=== PATIENT | male | born 1945 | race Caucasian/White ===

== ENCOUNTER 2023-02-18 11:21 | Inpatient (IN) ==
--- NOTE | 2023-02-18 12:14 | Emergency Department Note ---
History of Present Illness General Chief complaint: Unable to Void Stated complaint: REF BY DOC; UNABLE TO VOID Time Seen by Provider: 02/18/23 11:43 Source: patient, family and old records reviewed Mode of arrival: ambulatory Limitations: no limitations History of Present Illness Maximum Pain Intensity: 10 This patient is a 77-year-old male has a history of metastatic lung cancer, comes in after having urinary retention. He was actually at the cancer center today to get evaluated for radiation on some hip lesions. They did a CT for preparation and noticed he had a very large bladder and sent him here. The patient says he has been dribbling and had a hard time urinating intermittently for at least a week and a half or so he has been wearing diapers as well. He does have some pain in his legs and some weakness which was thought to be attributed to some hip lesions although his daughters that he walked well today. He did have a recent MRI of his hips done on the he had a PET scan done on 04 January. He does receive Keytruda and received it last month ago or so Home Medications Medication Instructions Recorded Confirmed Type brimonidine 0.2 %-timolol 0.5 % 1 drp OPR BID 02/17/23 02/18/23 History eye drops dorzolamide (PF) 2 % (PF) eye drops 1 drp OPR TID 02/17/23 02/18/23 History gabapentin 100 mg capsule 100 mg PO HS 02/17/23 02/18/23 History latanoprost 0.005 % eye drops 1 drp OPR QPM 02/17/23 02/18/23 History (Xalatan) levothyroxine 75 mcg capsule 75 mcg PO DAILY 02/17/23 02/18/23 History sodium di- and 1 tab PO BID 02/17/23 02/18/23 History monophosphate-potassium phos monobasic 250 mg tablet (Phospho-Maxine Neutral) tamsulosin 0.4 mg capsule 0.4 mg PO DAILY 02/17/23 02/18/23 History Allergies Allergy/AdvReac Type Severity Reaction Status Date / Time No Known Allergies Allergy Unverified 02/18/23 13:23 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 Tobacco use disorder Surgical History H/O inguinal hernia repair History of bronchoscopy History of cataract surgery Social History Smoking Status: Current every day smoker Tobacco Type: Cigarettes Age Started Using Tobacco: 28; Cigarettes Per Day: 1/2-1 pack per day; Second Hand Exposure: Yes; Do You Dip or Chew Tobacco: No; Hx Alcohol Use: No Hx Substance Use: No Preferred Language: Maltese Communication Ability: Effective Visual Impairment: Partially Limited Hearing Ability: Normal Salesperson [employer] Required: No Beliefs That Will Affect Care: None marital status: / Current Living Situation: Alone current occupational status: 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, 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 Feels Safe at Home: Yes Diet: regular during the past year weight has: remained stable Assistive Devices: Cane and Glasses Review of Systems A total of 10 systems reviewed and were otherwise negative Physical Exam Vital Signs Vital Signs - 24 hr 02/18/23 11:26 02/18/23 13:41 Temperature 36.5 C Temperature Source Temporal Artery Scan Pulse Rate 62 59 L Respiratory Rate 16 Respiratory Effort / Characteristics Non-Labored Respiratory Depth Normal Blood Pressure 116/67 Blood Pressure Mean 83 Pulse Oximetry 95 Oxygen Delivery Method Room Air Sepsis Recent Fever Within 48 Hours No Sepsis New/Unexplained Change in Mental Status No Sepsis Action Taken by Nursing No Action Required General: Well developed well nourished older male who appears frail but in no acute distress, breathing comfortably on room air. Normal speech HEENT: Normal cephalic atraumatic. Pupils are equal round and reactive to light. Extraocular movements are intact. Oropharynx is pink with moist mucous membranes. No swelling of the mouth lips or tongue. Neck: Supple with a midline trachea. No meningeal signs or stiffness, no JVD or bruits. No Stridor. Chest: Clear to auscultation bilaterally. No wheezes or rhonchi. No increased work of breathing. Heart: Regular rate and rhythm without murmurs or gallops. Abdomen: Soft nontender.there is a distended bladder felt suprapubically without rebound guarding or rigidity. Extremities: No cyanosis clubbing or edema. No calf tenderness or assymetry Spine/Back. Non tender to palpation. No CVA tenderness Skin: Good turgor without rashes. Neurologic exam: Cranial nerves two through 12 are intact. Motor and sensation are intact and symmetrical throughout. Medical Decision Making Differential Diagnosis Urinary retention, cancer related complication, spinal process or spinal mets, prostate issues, kidney disease, electrolyte or metabolic abnormality Medical Records Attestation: I reviewed the patient's medical records. Home Medications Current Medication List: was personally reviewed by me Laboratory Data Attestation: I reviewed the patient's lab results. 02/18/23 12:13 02/18/23 12:13 Lab Results 02/18/23 02/18/23 02/18/23 Range/Units 12:02 12:13 12:13 WBC 10.46 (4.8-10.8) K/ul RBC 3.90 L (4.70-6.10) M/uL Hgb 11.8 L (14.0-18.0) g/dl Hct 34.1 L (42.0-52.0) % MCV 87.4 (80.0-100.0) fL MCH 30.3 (25.0-34.0) pg MCHC 34.6 (32.0-36.0) g/dL RDW Std Deviation 49.4 H (36.4-46.3) fL RDW Coeff of Madeleine 15.4 H (11.5-14.5) % Plt Count 221 (130-400) K/uL MPV 9.8 (9.4-12.4) fL Immature Gran % (Auto) 0.6 % Neut % (Auto) 60.9 % Lymph % (Auto) 28.2 % [place] % (Auto) 8.3 % Eos % (Auto) 1.6 % Baso % (Auto) 0.4 % Neut # (Auto) 6.37 (1.40-6.50) K/uL Lymph # (Auto) 2.95 (1.2-3.4) K/uL [place] # (Auto) 0.87 H (0.11-0.59) K/uL Eos # (Auto) 0.17 (0-0.50) K/uL Baso # (Auto) 0.04 (0-0.2) K/uL Immature Gran # (Auto) 0.06 (0.01-0.20) K/uL Sodium 124 L (136-145) mmol/L Potassium 4.6 (3.5-5.1) mmol/L Chloride 92 L (98-107) mmol/L Carbon Dioxide 22 (21-32) mmol/L Anion Gap 10 (3-11) BUN 50 H (6-23) mg/dl Creatinine 5.91 H* (0.6-1.4) mg/dl Est Cr Clr Drug Dosing Not Reportable Est GFR ( Amer) 9.6 ml/min Est GFR (Non-Af Amer) 8.3 ml/min BUN/Creatinine Ratio 8.5 L (10-20) Glucose 91 (70-99(Fasting)) mg/dl Calcium 4.4 L* (8.6-10.3) mg/dl Phosphorus 6.3 H (2.5-4.9) mg/dl Magnesium 3.7 H (1.7-2.4) mg/dl Total Bilirubin 0.3 (0.2-1.0) mg/dl AST 17 (13-39) U/L ALT 6 L (7-52) U/L Alkaline Phosphatase 209 H (34-104) U/L Total Protein 6.1 (6.0-8.3) gm/dl Albumin 3.1 L (3.4-5.0) gm/dl Globulin 3.0 (2.5-4.0) gm/dl Albumin/Globulin Ratio 1.0 (0.9-2) Urine Color Yellow Urine Appearance Clear (Clear) Urine pH 5.5 (4.5-7.5) Ur Specific [place] 1.007 (1.000-1.030) Urine Protein Negative (Negative) Urine Glucose (UA) Negative (Negative) Urine Ketones Negative (Negative) Urine Blood 3+ H (Negative) Urine Nitrite Negative (Negative) Urine Bilirubin Negative (Negative) Urine Urobilinogen Negative (Negative) Ur Leukocyte Esterase 1+ H (Negative) Urine WBC (Auto) 1-5 (0-5) /hpf Urine RBC (Auto) 5-10 H (0-4) /hpf U Hyaline Cast (Auto) 0 (0-5) /lpf U Epithel Cells (Auto) 0-5 (0-5) /lpf Urine Bacteria (Auto) Negative (Negative) Imaging Data Attestation: I personally reviewed and interpreted this imaging study as follows: My Impression: CAT scan of the abdomen and pelvis shows bilateral hydronephrosis and a decompressed bladder. He also has a approximately 7 cm AAA Radiologist's Impression: Abdomen/Pelvis CT 02/18/23 12:05 CT SCAN OF THE ABDOMEN AND PELVIS WITHOUT IV CONTRAST CLINICAL HISTORY: Dysuria. Inability to void. Lung cancer. COMPARISON STUDY: No priors. TECHNIQUE: CT scan of the abdomen and pelvis is performed from the lung bases to the proximal femora. Images are reviewed in the axial, sagittal, and coronal planes. IV contrast was not administered for this examination. A dose lowering technique was utilized adhering to the principles of ALARA. CT DOSE: 806.43 mGy.cm FINDINGS: Lung bases: The heart is enlarged and without pericardial effusion. The coronary arteries are densely calcified. There are right larger than left pleural effusions with dependent consolidation. Liver: The unenhanced liver is normal in size, contour, and attenuation. There is no intrahepatic biliary ductal dilatation. Gallbladder: Unremarkable. Spleen: Normal in size and attenuation. Pancreas: Unremarkable. Adrenal glands: Bilateral adrenal nodules measure up to 3.[address] criteria for fat-containing adenomas. Kidneys: The unenhanced kidneys are normal in size. There is moderate bilateral hydroureteronephrosis, right greater than left. No renal calculi are identified and there is no evidence of ureteral stone. There is no evidence of contour deforming renal mass lesion. Abdominal vasculature: There is advanced atherosclerotic calcification of the abdominal aorta. There is a large infrarenal abdominal aortic aneurysm. This measures 6.8 x 6.9 cm (AP times transverse), and the aneurysm sac extends approximately 12 cm in craniocaudal length. 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 A right internal iliac artery aneurysm measures up to 2.8 cm. There is ectasia of the right superficial femoral artery which measures up to 1.7 cm in diameter. Bowel: There is no bowel obstruction. Moderate fecal retention is seen throughout the colon. The appendix is well-visualized and normal. Peritoneum: There is trace abdominopelvic ascites. No intraperitoneal free air is seen. Lymphadenopathy: Mildly enlarged retroperitoneal lymph nodes measure up to 13 mm in length. Pelvic viscera: The prostate gland is enlarged and heterogeneous. The bladder is largely decompressed around a Wadsworth catheter. The bladder wall is thickened/trabeculated indicating chronic outlet obstruction. There are foci of intraluminal gas. There is pericystic infiltration. Skeletal structures: There is evidence of extensive multifocal osteoblastic metastatic disease. There is complete replacement of the sacrum and bony pelvis. Large lesions are also seen throughout the imaged thoracolumbar spine. IMPRESSION: 1. The bladder is largely decompressed around a Wadsworth catheter. The wall is thickened and irregular and there is pericystic infiltration. Correlate with clinical findings and urinalysis. 2. There is moderate bilateral hydroureteronephrosis, right greater than left. The ureters are dilated to level of the bladder and no obstructing stone or lesion is seen. This may be related to bladder distention/outlet obstruction. Clinical correlation will be required. 3. There is extensive/diffuse osteoblastic metastatic disease. In a male patient the appearance is most typical for prostate cancer. Correlate with the oncological history. 4. Mildly enlarged retroperitoneal lymph nodes are pathologically determined but also suspicious for metastatic disease, especially if there is a history of prostate cancer. 5. A large infrarenal abdominal aortic aneurysm measures 6.8 x 6.9 cm. There is no clear CT evidence of impending rupture at this time. If not already performed, vascular surgical evaluation is advised. 6. 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 7. Cardiomegaly. 8. Right larger than left pleural effusions with dependent consolidation. 9. Trace abdominopelvic ascites. 10. Additional findings as above. ACT 112: Negative or not required by law. Electronically signed by: Jorge Alberto Langley M.D. 02/18/2023 1:[address] 02/18/23 12:[address] DOSE: HISTORY: lung ca, eval for bony metastatic disease or cord comp TECHNIQUE: Multiaxial CT images of the lumbar spine were performed and reforma tted in the sagittal and coronal plane without the use of contrast. A dose lowering technique was utilized adhering to the principles of ALARA. COMPARISON: None. FINDINGS: Extensive osteoblastic metastatic disease seen throughout the lumbar spine and sacrum. No acute fracture or subluxation within the lumbar spine.. There is fusion of the L1-L2 vertebral bodies. Focal indentation at the inferior endplate of L5 is likely chronic. There is moderate disc space narrowing at L4- L5. There is mild disc space narrowing at L2-L3 and L3-L4. Moderate to severe facet degenerative changes most pronounced within the lower lumbar spine. The abdominal aortic and left common iliac artery aneurysms are better appreciated on the same day abdomen and pelvis CT. Mild bilateral hydronephrosis is also noted. There is a 3 cm low-density left adrenal gland nodule. Evaluation the central canal is nearly nondiagnostic due to the CT technique. However, there is no high-grade central canal narrowing. No definite soft tissue masses within the lumbar canal. No definite paravertebral soft tissue masses identified. IMPRESSION: 1. Extensive osteoblastic metastatic disease seen throughout the lumbar spine an d sacrum. 2. No acute fractures within the lumbar spine. 3. 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 4. No definite epidural or paravertebral soft tissue masses. No high-grade central canal narrowing by CT technique. ACT 112: Negative or not required by law. Electronically signed by: Jaspreet Nathan M.D. 02/18/2023 1:01 PM ECG Data Attestation: I personally reviewed and interpreted this ECG as follows: Indication: + weakness Rate (beats per minute): 59 Rhythm: + sinus bradycardia ECG Intervals/blocks: + Right Bundle branch block and + Prolonged QT ECG Elbert: + Normal ECG ST segments: + Normal ST segments ECG Findings: no PACs or no PVCs Comparison ECG Date: no prior available MDM Narrative This patient comes in as scribed above he sent up from the cancer center after being noticed to have a large bladder he had distention. We did place a Wadsworth catheter and slowly relieved his urinary retention he had over 2 L. IV access was established, blood work was obtained and I talked with Dr. Manuel Mccray his oncologist and it sounds like he has had imaging recently but he was in agreement with getting further imaging today so I did do a CAT scan of the abdomen as well as lumbar to rule out any acute fracture or bony process which could be compressing the spinal cord. Incidentally there was a large aneurysm noted and I discussed this with the daughter this is well-known the patient has had discussions with vascular surgery and does not want this operated on and acknowledges that if this ruptures that this would likely end his life acutely. He is also DO NOT RESUSCITATE. I talked to the patient's daughter at length about this and this has been his wishes. His CAT scan does show a decompressed bladder now that the Wadsworth catheter is in but he has bilateral hydro which is likely from this. He has a known aneurysm which is 7 cm and does not appear to be ruptured. He has no white count or fever to suggest infection no significant anemia. He does have low sodium of 124 and also very low calcium of 4.4. I did add a magnesium level as well as phosphorus. His BUN and creatinine are elevated with a creatinine of 5.9. Given his urinary retention this is most likely post renal etiology for his failure although given his complex history there may be a prerenal or renal component as well. I did give him IV hydration. I also discussed the case with Bradley our ED pharmacist who recommended calcium gluconate 2 g IV and this was ordered in the ED I did discuss the case with Eva from urology and she agrees with the plan. I have [facility] as I do think he needs to be admitted for IV hydration and further treatment and evaluation. Continuous cardiac monitoring: Orders placed in EMR for continuous cardiac monitoring: Upon my evaluation patient noted to be normal sinus rhythm with a rate of 62 Impression & Plan Acute renal failure, Metastatic adenocarcinoma to bone, Non-small cell lung cancer, AAA (abdominal aortic aneurysm), Acute urinary retention, DNR (do not resuscitate) discussion, Hypocalcemia, Acute hyponatremia Discharge Plan Visit Data Chief Complaint: Unable to Void Stated Complaint: REF BY DOC; UNABLE TO VOID ED Provider: Avinash Garnica Discharge Problem: Acute renal failure, Metastatic adenocarcinoma to bone, Non-small cell lung cancer, AAA (abdominal aortic aneurysm), Acute urinary retention, DNR (do not resuscitate) discussion, Hypocalcemia, Acute hyponatremia Forms Stand Alone Forms: My [employer] Prescriptions Prescriptions: No Action brimonidine-timolol 0.2-0.5 % drops 1 drp OPR BID Patient Comments: right eye latanoprost [Xalatan] 0.005 % drops 1 drp OPR QPM Patient Comments: right eye tamsulosin 0.4 mg capsule 0.4 mg PO DAILY Phospho-Maxine 250 Neutral 250 mg tablet 1 tab PO BID dorzolamide (PF) 2 % drops 1 drp OPR TID levothyroxine 75 mcg capsule 75 mcg PO DAILY gabapentin 100 mg capsule 100 mg PO HS Referrals Referrals: Trey Mancuso MD [Primary Care Provider] -
[2023-02-18 12:26] LABS: Appearance Urine Clear (Clear); Bacteria Urine Automated Negative (Negative); Bilirubin Urine Negative (Negative); Blood Urine 3+ (Negative); Cast Urine Automated 0 /lpf (0-5); Color Urine Yellow; Epithelial Cell Urine Auto 0-5 /lpf (0-5); Glucose Urine UA Negative (Negative); Ketones Urine Negative (Negative); Leukocyte Esterase Urine 1+ (Negative); Nitrite Urine Negative (Negative); Protein Urine Negative (Negative); Specific Gravity Urine 1.007 (1.000-1.030); Urobilinogen Urine Negative (Negative); pH Urine 5.5 (4.5-7.5)
[2023-02-18 12:29] LABS: Basophils # (auto) 0.04 K/uL (0-0.2); Basophils % (auto) 0.4 %; Eosinophils # (auto) 0.17 K/uL (0-0.50); Eosinophils % (auto) 1.6 %; Hematocrit (blood only) 34.1 % (42.0-52.0); Hemoglobin 11.8 g/dl (14.0-18.0); Immature Granulocytes # (auto) 0.06 K/uL (0.01-0.20); Immature Granulocytes % (auto) 0.6 %; Lymphocytes # (auto) 2.95 K/uL (1.2-3.4); Lymphocytes % (auto) 28.2 %; Mean Corpuscular Hemoglobin 30.3 pg (25.0-34.0); Mean Corpuscular Hgb Conc 34.6 g/dL (32.0-36.0); Mean Corpuscular Volume 87.4 fL (80.0-100.0); Mean Platelet Volume 9.8 fL (9.4-12.4); Monocytes # (auto) 0.87 K/uL (0.11-0.59); Monocytes % (auto) 8.3 %; Neutrophils # (auto) 6.37 K/uL (1.40-6.50); Neutrophils % (auto) 60.9 %; Platelet Count 221 K/uL (130-400); RDW Coefficient of Variation 15.4 % (11.5-14.5); RDW Standard Deviation 49.4 fL (36.4-46.3); White Blood Count 10.46 K/ul (4.8-10.8)
[2023-02-18 13:00] LABS: Alanine Aminotransferase 6 U/L (7-52); Albumin Level 3.1 gm/dl (3.4-5.0); Alkaline Phosphatase 209 U/L (34-104); Anion Gap 10 (3-11); Aspartate Aminotransferase 17 U/L (13-39); BUN Creatinine Ratio 8.5 (10-20); Bilirubin,Total 0.3 mg/dl (0.2-1.0); Blood Urea Nitrogen 50 mg/dl (6-23); Calcium 4.4 mg/dl (8.6-10.3); Carbon Dioxide 22 mmol/L (21-32); Chloride 92 mmol/L (98-107); Est GFR (African American) 9.6 ml/min; Est GFR (Non-African American) 8.3 ml/min; Glucose 91 mg/dl (70-99(Fasting)); Potassium 4.6 mmol/L (3.5-5.1); Sodium 124 mmol/L (136-145); Total Protein 6.1 gm/dl (6.0-8.3)
--- NOTE | 2023-02-18 13:03 | CT Scan Report ---
LUMBAR SPINE CT CT DOSE: HISTORY: lung ca, eval for bony metastatic disease or cord comp TECHNIQUE: Multiaxial CT images of the lumbar spine were performed and reformatted in the sagittal an d coronal plane without the use of contrast. A dose lowering technique was utilized adhering to the principles of ALARA. COMPARISON: None. FINDINGS: Extensive osteoblastic metastatic disease seen throughout the lumbar spine and sacrum. No a cute fracture or subluxation within the lumbar spine.. There is fusion of the L1-L2 vertebral bodies. Focal indentation at the inferior endplate of L5 is likely chronic. There is moderate disc space alesia rowing at L4-L5. There is mild disc space narrowing at L2-L3 and L3-L4. Moderate to severe facet dege nerative changes most pronounced within the lower lumbar spine. The abdominal aortic and left common iliac artery aneurysms are better appreciated on the same day abdomen and pelvis CT. Mild bilateral h ydronephrosis is also noted. There is a 3 cm low-density left adrenal gland nodule. Evaluation the ce ntral canal is nearly nondiagnostic due to the CT technique. However, there is no high-grade central canal narrowing. No definite soft tissue masses within the lumbar canal. No definite paravertebral so ft tissue masses identified. IMPRESSION: 1. 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 2. No acute fractures within the lumbar spine. 3. Abdominal aortic and left common iliac artery aneurysms are better appreciated on the same day abd omen and pelvis CT. 4. No definite epidural or paravertebral soft tissue masses. No high-grade central canal narrowing by CT technique. ACT 112: Negative or not required by law. Electronically signed by: Jaspreet Nathan M.D. 02/18/2023 1:01 PM
--- NOTE | 2023-02-18 13:10 | CT Scan Report ---
CT SCAN OF THE ABDOMEN AND PELVIS WITHOUT IV CONTRAST CLINICAL HISTORY: Dysuria. Inability to void. Lung cancer. COMPARISON STUDY: No priors. TECHNIQUE: CT scan of the abdomen and pelvis is performed from the lung bases to the proximal femora. Images are reviewed in the axial, sagittal, and coronal planes. IV contrast was not administered for this examination. A dose lowering technique was utilized adhering to the principles of ALARA. CT DOSE: 806.43 mGy.cm FINDINGS: Lung bases: The heart is enlarged and without pericardial effusion. The coronary arteries are densely calcified. There are right larger than left pleural effusions with dependent consolidation. Liver: The unenhanced liver is normal in size, contour, and attenuation. There is no intrahepatic patricia iary ductal dilatation. Gallbladder: Unremarkable. Spleen: Normal in size and attenuation. Pancreas: Unremarkable. Adrenal glands: Bilateral adrenal nodules measure up to 3.[address] criteria for fat-contai yoel adenomas. Kidneys: The unenhanced kidneys are normal in size. There is moderate bilateral hydroureteronephrosis , right greater than left. No renal calculi are identified and there is no evidence of ureteral stone . There is no evidence of contour deforming renal mass lesion. Abdominal vasculature: There is advanced atherosclerotic calcification of the abdominal aorta. There is a large infrarenal abdominal aortic aneurysm. This measures 6.8 x 6.9 cm (AP times transverse), an d the aneurysm sac extends approximately 12 cm in craniocaudal length. 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 A right internal iliac artery aneurysm measures up to 2.8 cm. T here is ectasia of the right superficial femoral artery which measures up to 1.7 cm in diameter. Bowel: There is no bowel obstruction. Moderate fecal retention is seen throughout the colon. The appe ndix is well-visualized and normal. Peritoneum: There is trace abdominopelvic ascites. No intraperitoneal free air is seen. Lymphadenopathy: Mildly enlarged retroperitoneal lymph nodes measure up to 13 mm in length. Pelvic viscera: The prostate gland is enlarged and heterogeneous. The bladder is largely decompressed around a Wadsworth catheter. The bladder wall is thickened/trabeculated indicating chronic outlet obstru ction. There are foci of intraluminal gas. There is pericystic infiltration. Skeletal structures: There is evidence of extensive multifocal osteoblastic metastatic disease. There is complete replacement of the sacrum and bony pelvis. Large lesions are also seen throughout the im aged thoracolumbar spine. IMPRESSION: 1. The bladder is largely decompressed around a Wadsworth catheter. The wall is thickened and irregular a nd there is pericystic infiltration. Correlate with clinical findings and urinalysis. 2. There is moderate bilateral hydroureteronephrosis, right greater than left. The ureters are dilate d to level of the bladder and no obstructing stone or lesion is seen. This may be related to bladder distention/outlet obstruction. Clinical correlation will be required. 3. There is extensive/diffuse osteoblastic metastatic disease. In a male patient the appearance is mo st typical for prostate cancer. Correlate with the oncological history. 4. Mildly enlarged retroperitoneal lymph nodes are pathologically determined but also suspicious for metastatic disease, especially if there is a history of prostate cancer. 5. A large infrarenal abdominal aortic aneurysm measures 6.8 x 6.9 cm. There is no clear CT evidence of impending rupture at this time. If not already performed, vascular surgical evaluation is advised. 6. 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 7. Cardiomegaly. 8. Right larger than left pleural effusions with dependent consolidation. 9. Trace abdominopelvic ascites. 10. Additional findings as above. ACT 112: Negative or not required by law. Electronically signed by: Jorge Alberto Langley M.D. 02/18/2023 1:09 PM
[2023-02-18] MEDS ORDERED: SODIUM CHLORIDE 0.9% 1000ML 500 ML IV ONE ×2 (13:15→13:22)
[2023-02-18] MEDS ORDERED: CALCIUM GLUCONATE 1,000 MG/60 ML BAG IV STA (13:41)
[2023-02-18 13:51] LABS: Magnesium 3.7 mg/dl (1.7-2.4); Phosphorus 6.3 mg/dl (2.5-4.9)
--- NOTE | 2023-02-18 14:00 | Electrocardiogram Report ---
Test Reason : Blood Pressure : / mmHG Vent. Rate : 059 BPM Atrial Rate : 059 BPM P-R Int : 198 ms QRS Dur : 132 ms QT Int : 554 ms P-R-T Axes : 072 -79 003 degrees QTc Int : 548 ms Sinus bradycardia Possible Left atrial enlargement Right bundle branch block Left anterior fascicular block Possible Old Septal infarct Abnormal ECG No previous ECGs available Confirmed by Александр Silva ([id number]) on 02/18/2023 1:59:53 PM Referred By: REFERRED SELF Confirmed By:Александр Silva
--- NOTE | 2023-02-18 14:11 | History & Physical Report ---
Date of Service February 18, 2023 Assessment & Plan (1) Acute urinary retention: (2) Acute renal failure: (3) BPH (benign prostatic hyperplasia): Plan: This is a 77-year-old male with PMH of non-small cell lung cancer with metastasis to bone undergoing Keytruda treatment, drug-induced hypothyroidism, AAA without rupture, BPH and other medical problems listed below who presents with abnormal CT scan from radiology appointment and found to have CHAUNCEY 2/2 bladder outlet obstruction and hypocalcemia. Noted to have enlarged bladder on CT scan at radiology appointment and sent to ED, missed Flomax x 3 days Alfaro placed with 2L output so far CT abd/pelvis in ED showing bladder is largely decompressed around a Alfaro catheter. The wall is thickened and irregular and there is pericystic infiltration. Correlate with clinical findings and urinalysis Cr elevated at 5.91 (baseline Cr ~0.8) - repeat labwork this evening, expect improvement with alfaro in place Given flomax Urology made aware by ED physician and are not planning intervention Nephrology consulted, patient also with electrolyte abnormalities as below, appreciate recs (4) Hypocalcemia: Plan: Calcium 4.4, corrects to 5.5 In setting of bone mets Giving 2 gm calcium gluconate Nephrology evaluating patient PTH, vitamin D level, uric acid all pending to better determine etiology EKG without acute abnormalities Repeat calcium pending at 1800 (5) Acute hyponatremia: Plan: Sodium of 124 (previously 139 last month), poor PO intake over past few days, ad ded serum osm with repeat Na at 1800 (6) Non-small cell lung cancer: (7) Metastatic adenocarcinoma to bone: Plan: Following with Dr. Mccray, taking Keytruda Q6 weeks (due next week) Looking to establish with rad onc for palliative XRT (8) AAA (abdominal aortic aneurysm): Plan: Known condition, does not want to pursue surgical intervention and understands risk (9) Tobacco use disorder: Plan: Will offer nicotine patch DVT Ppx: SQ heparin Code status: DNR/DNI PCP: Sebas Hsieh Dispo: Admit to PCU Patient seen in collaboration with . Please see addendum. I spent a total of 75 minutes coordinating, documenting, and providing care for this patient excluding time spent in the performance of separately billed services. History of Present Illness Primary Care Provider: Trey Mancuso MD This is a 77-year-old male with PMH of non-small cell lung cancer with metastasis to bone undergoing Keytruda treatment, drug-induced hypothyroidism, AAA without rupture, BPH and other medical problems listed below who presents with abnormal CT scan from radiology appointment. Was being evaluated for palliative radiation due to worsening pain in right hip/back with outpatient MRI pelvis from 02/09/23 showed diffuse metastatic disease within the lumbosacral spine, sacrum, pelvis, left and right proximal femur. Enlarged bladder seen on imaging and was sent to ED for further evaluation. States that he has had decreased urinary flow over the past 2 weeks with more "dribbling" versus a steady stream that he had before. Has also had to wear a diaper. Denies any confusion, lightheadedness, chest pain, shortness of breath, nausea, vomiting, abdominal pain, dysuria. Had a hard bowel movement 2 days ago. Daughter at bedside states patient has had decreased PO intake over the past few days and seems to have less of an appetite due to worsening pain in back and hips. Has not taken any home meds in 3 days. Due for next Keytruda treatment in 1 week. Allergies Allergy/AdvReac Type Severity Reaction Status Date / Time No Known Allergies Allergy Unverified 02/18/23 13:23 Home Medications Medication Instructions Recorded Confirmed Type brimonidine 0.2 %-timolol 0.5 % 1 drp OPR BID 02/17/23 02/18/23 History eye drops dorzolamide (PF) 2 % (PF) eye drops 1 drp OPR TID 02/17/23 02/18/23 History gabapentin 100 mg capsule 100 mg PO HS 02/17/23 02/18/23 History latanoprost 0.005 % eye drops 1 drp OPR QPM 02/17/23 02/18/23 History (Xalatan) levothyroxine 75 mcg capsule 75 mcg PO DAILY 02/17/23 02/18/23 History sodium di- and 1 tab PO BID 02/17/23 02/18/23 History monophosphate-potassium phos monobasic 250 mg tablet (Phospho-Maxine Neutral) tamsulosin 0.4 mg capsule 0.4 mg PO DAILY 02/17/23 02/18/23 History 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 Tobacco use disorder Surgical History H/O inguinal hernia repair History of bronchoscopy History of cataract surgery Family History Other Alzheimer disease Kidney disease Social History Smoking Status: Heavy tobacco smoker Tobacco Type: Cigarettes Age Started Using Tobacco: 28; Cigarettes Per Day: 1/2-1 pack per day; Second Hand Exposure: Yes; Do You Dip or Chew Tobacco: No; Hx Alcohol Use: No Hx Substance Use: No Preferred Language: Frisian Communication Ability: Effective Visual Impairment: Partially Limited Hearing Ability: Normal Nurse First Assist Required: No Beliefs That Will Affect Care: None marital status: / Current Living Situation: Alone current occupational status: retired 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 Physical Exam Physical Exam: General Appearance: WD/WN, vitals as above, NAD, sitting up in bed, pleasant, conversing easily Head: normocephalic, atraumatic Eyes: normal inspection, PERRL, conjunctivae normal, anicteric sclerae ENT: hard of hearing, external ear and nose normal, oropharynx dry mucous membranes Neck: normal visual inspection, trachea midline, no thyromegaly Respiratory: normal respiratory effort, lungs clear to auscultation, no wheeze, rales, rhonchi. No accessory muscle use Cardiovascular: bradycardic rate, regular rhythm, no murmur, normal peripheral pulses, trace BLE edema. Vessels: no JVD Chest: normal inspection of chest Abdomen/GI: normal bowel sounds, soft, nontender, no hepatosplenomegaly Extremities/Musculoskeletal: + TTP of lumbar spine, R lower back and hip. No cyanosis or clubbing, extremities motor strength 5/5 Neurologic: PERRL, EOMI, accommodation nl, no face palsy, no dysarthria, CN's II-XI intact bilaterally and moves all extremities Psychiatric: A+Ox3, euthymic affect Skin: no rashes, normal color, warm/dry Results & Data Results & Data Vital Signs (Past 12 Hours) Vital Signs Temp Pulse Resp BP Pulse Ox O2 Del Method 02/18/23 13:41 59 L 02/18/23 11:26 36.5 C 62 16 116/67 95 Room Air Laboratory Results Short CBC 02/18/23 Range/Units 12:13 WBC 10.46 (4.8-10.8) K/ul Hgb 11.8 L (14.0-18.0) g/dl Hct 34.1 L (42.0-52.0) % Plt Count 221 (130-400) K/uL BMP 02/18/23 12:13 Sodium 124 L Potassium 4.6 Chloride 92 L Carbon Dioxide 22 BUN 50 H Creatinine 5.91 H* Glucose 91 Calcium 4.4 L* Liver Function 02/18/23 Range/Units 12:13 Total Bilirubin 0.3 (0.2-1.0) mg/dl AST 17 (13-39) U/L ALT 6 L (7-52) U/L Alkaline Phosphatase 209 H (34-104) U/L Albumin 3.1 L (3.4-5.0) gm/dl Urine 02/18/23 Range/Units 12:02 Urine Color Yellow Urine Appearance Clear (Clear) Urine pH 5.5 (4.5-7.5) Ur Specific [place] 1.007 (1.000-1.030) Urine Protein Negative (Negative) Urine Glucose (UA) Negative (Negative) Diagnostic Findings Abdomen/Pelvis CT 02/18/23 12:05 CT SCAN OF THE ABDOMEN AND PELVIS WITHOUT IV CONTRAST CLINICAL HISTORY: Dysuria. Inability to void. Lung cancer. COMPARISON STUDY: No priors. TECHNIQUE: CT scan of the abdomen and pelvis is performed from the lung bases to the proximal femora. Images are reviewed in the axial, sagittal, and coronal planes. IV contrast was not administered for this examination. A dose lowering technique was utilized adhering to the principles of ALARA. CT DOSE: 806.43 mGy.cm FINDINGS: Lung bases: The heart is enlarged and without pericardial effusion. The coronary arteries are densely calcified. There are right larger than left pleural effusions with dependent consolidation. Liver: The unenhanced liver is normal in size, contour, and attenuation. There is no intrahepatic biliary ductal dilatation. Gallbladder: Unremarkable. Spleen: Normal in size and attenuation. Pancreas: Unremarkable. Adrenal glands: Bilateral adrenal nodules measure up to 3.[address] criteria for fat-containing adenomas. Kidneys: The unenhanced kidneys are normal in size. There is moderate bilateral hydroureteronephrosis, right greater than left. No renal calculi are identified and there is no evidence of ureteral stone. There is no evidence of contour deforming renal mass lesion. Abdominal vasculature: There is advanced atherosclerotic calcification of the abdominal aorta. There is a large infrarenal abdominal aortic aneurysm. This measures 6.8 x 6.9 cm (AP times transverse), and the aneurysm sac extends approximately 12 cm in craniocaudal length. 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 A right internal iliac artery aneurysm measures up to 2.8 cm. There is ectasia of the right superficial femoral artery which measures up to 1.7 cm in diameter. Bowel: There is no bowel obstruction. Moderate fecal retention is seen throughout the colon. The appendix is well-visualized and normal. Peritoneum: There is trace abdominopelvic ascites. No intraperitoneal free air is seen. Lymphadenopathy: Mildly enlarged retroperitoneal lymph nodes measure up to 13 mm in length. Pelvic viscera: The prostate gland is enlarged and heterogeneous. The bladder is largely decompressed around a Alfaro catheter. The bladder wall is thickened/trabeculated indicating chronic outlet obstruction. There are foci of intraluminal gas. There is pericystic infiltration. Skeletal structures: There is evidence of extensive multifocal osteoblastic metastatic disease. There is complete replacement of the sacrum and bony pelvis. Large lesions are also seen throughout the imaged thoracolumbar spine. IMPRESSION: 1. The bladder is largely decompressed around a Alfaro catheter. The wall is thickened and irregular and there is pericystic infiltration. Correlate with clinical findings and urinalysis. 2. There is moderate bilateral hydroureteronephrosis, right greater than left. The ureters are dilated to level of the bladder and no obstructing stone or lesion is seen. This may be related to bladder distention/outlet obstruction. Clinical correlation will be required. 3. There is extensive/diffuse osteoblastic metastatic disease. In a male patient the appearance is most typical for prostate cancer. Correlate with the oncological history. 4. Mildly enlarged retroperitoneal lymph nodes are pathologically determined but also suspicious for metastatic disease, especially if there is a history of prostate cancer. 5. A large infrarenal abdominal aortic aneurysm measures 6.8 x 6.9 cm. There is no clear CT evidence of impending rupture at this time. If not already performed , vascular surgical evaluation is advised. 6. 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 7. Cardiomegaly. 8. Right larger than left pleural effusions with dependent consolidation. 9. Trace abdominopelvic ascites. 10. Additional findings as above. ACT 112: Negative or not required by law. Electronically signed by: Jorge Alberto Langley M.D. 02/18/2023 1:[address] 02/18/23 12:[address] DOSE: HISTORY: lung ca, eval for bony metastatic disease or cord comp TECHNIQUE: Multiaxial CT images of the lumbar spine were performed and reformatted in the sagittal and coronal plane without the use of contrast. A dose lowering technique was utilized adhering to the principles of ALARA. COMPARISON: None. FINDINGS: Extensive osteoblastic metastatic disease seen throughout the lumbar spine and sacrum. No acute fracture or subluxation within the lumbar spine.. There is fusion of the L1-L2 vertebral bodies. Focal indentation at the inferior endplate of L5 is likely chronic. There is moderate disc space narrowing at L4- L5. There is mild disc space narrowing at L2-L3 and L3-L4. Moderate to severe facet degenerative changes most pronounced within the lower lumbar spine. The abdominal aortic and left common iliac artery aneurysms are better appreciated on the same day abdomen and pelvis CT. Mild bilateral hydronephrosis is also noted. There is a 3 cm low-density left adrenal gland nodule. Evaluation the central canal is nearly nondiagnostic due to the CT technique. However, there is no high-grade central canal narrowing. No definite soft tissue masses within the lumbar canal. No definite paravertebral soft tissue masses identified. IMPRESSION: 1. 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 2. No acute fractures within the lumbar spine. 3. 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 4. No definite epidural or paravertebral soft tissue masses. No high-grade central canal narrowing by CT technique. ACT 112: Negative or not required by law. Electronically signed by: Jaspreet Nathan M.D. 02/18/2023 1:01 PM ECG Additional Comments: EKG reviewed : Sinus bradycardia. Possible Left atrial enlargement. Right bundle branch block. Left anterior fascicular block (seen previously) Possible Old Septal infarct. No acute ST changes Code Status & VTE Plan VTE Prophylaxis Plan VTE Prophylaxis will be ordered: Yes Supervising Physician Co-Signing Physician Notes I have seen and examined the patient and have discussed the case with the provider above. I agree with the assessment and plan as stated with the following exceptions. 77 yo M with NSCLC with mets to bone on Keytruda and about to start XRT presents with acute urinary retention seen during radiation oncology consultation today. Workup in the ER revealed very low but asymptomatic calcium level to 4.4, acute renal failure with a creatinine of 5.91, and a sodium of 124. He admits to severe pain in his lower back and right hip related to metastatic disease and doesnt take narcotics at home. He can still walk but with ongoing pain for the last 3 days he has been noncompliant with medications and limited in his PO intake. Despite the severity of the hypocalcemia, he appears asymptomatic denying perioral numbness or other spasticity. He does have some spasms in his right leg, but felt this was related to his hip and back pain. He is oriented and elderly and thin. He is in NAD and demonstrates normal respiratory effort. Lungs are CTA throughout. Cardiac exam reveals S1/2 heard without murmurs, there is a reg rate and rhythm and he has no peripheral edema. There is no bruising of the right hip. Gait was not assessed in the ER tonight. He is oriented and answering questions appropriately. Alfaro catheter is in place draining clear urine with a pinkish tint. L spine CT reveals extensive osteoblastic metastatic disease seen in the lumbar spine and sacrum without fractures. CT a/p reveals right>left hydronephrosis with dilated ureters without obstructing stone or lesion. Retroperitoneal lymph nodes are seen with a large infrarenal AAA measuring 6.8 x 6.9cm. Additional arterial aneurysms are seen. See note above regarding workup of these. EKG reveals a prolonged QTc to 548ms and sinus bradycardia. 1. Acute urinary retention possibly related to prostate enlargement 2. Acute post-obstructive renal failure 3. Severe hypocalcemia 4. Hyponatremia 5. NSCLC with mets to bone 6. AAA-7cm 7. Tobacco use Cont with Alfaro catheter placed in the ER, with subsequent drainage of 2L urine. NSS initially given out of concern for post-obstructive diuresis. Repeat sodium trended up from [id number]. Switch to dextrose to restrict sodium from rising too quickly. Repeat BMP at 2200. [employer] Machine to follow. Calcium replacement with 3 additional grams being given IV tonight. Two grams were given already. Cont to follow calcium levels and repeat this and EKG in am to monitor change in QT after repletion of calcium. Nephrology consulted. Expect creatinine to continue to improve with alfaro catheter in place. Cont BPH home meds and Urology consult for urinary retention. He is scheduled to start XRT early next week. Daughter was present at bedside and all questions were answered, plan explained. Pain control with scheduled Tylenol and Tramadol with first dose now. Titrate as needed. Nutrition consultation for needs assessment. DO Solomon (2) Acute renal failure Acute renal failure type: unspecified Qualified Code(s): N17.9 - Acute kidney failure, unspecified (6) Non-small cell lung cancer Laterality: unspecified laterality Qualified Code(s): C34.90 - Malignant neoplasm of unspecified part of unspecified bronchus or lung (8) AAA (abdominal aortic aneurysm) Abdominal aorta location: unspecified Presence of rupture: without rupture Qualified Code(s): I71.40 - Abdominal aortic aneurysm, without rupture, unspecified
[2023-02-18] MEDS ORDERED: ACETAMINOPHEN 500 MG TAB PO STA (14:25)
[2023-02-18] MEDS ORDERED: LIDOCAINE 5% 1 PATCH TD STA (14:25)
[2023-02-18] MEDS ORDERED: TAMSULOSIN HCL 0.4 MG CAP PO ONE (14:29)
[2023-02-18] MEDS ORDERED: CALCIUM GLUCONATE 1,000 MG/60 ML BAG IV ONE (15:00)
[2023-02-18] MEDS ORDERED: STAT IV STA ×2 (15:05→19:21)
[2023-02-18] MEDS ORDERED: CALCIUM GLUCONATE 10% 1,000 MG in DEXTROSE 5% 50 ML IV ONE (15:05)
[2023-02-18] MEDS ORDERED: traMADol HCL 50 MG TABLET PO PRN (15:08)
[2023-02-18] MEDS ORDERED: SODIUM CHLORIDE 0.45 % 1,000 ML IV SCH (15:15)
[2023-02-18] MEDS ORDERED: traMADol HCL 50 MG TABLET PO STA (15:56)
[2023-02-18 16:02] LABS: Creatine Kinase 285 U/L (30-223); Uric Acid 9.3 mg/dl (2.6-7.2)
--- NOTE | 2023-02-18 16:41 | Nephrology Consultation ---
Date of Consultation February 18, 2023 Assessment & Plan (1) Acute renal failure: Baseline creatinine completely normal at 0.9 so current creatinine of 5.9 is very abnormal. At this point the etiology is severe bladder outlet obstruction causing obstructive uropathy. Very good urine output since the Wadsworth catheter placed. He has another lab pending which should show significant improvement. Also need renal function checked again in the morning. Follow input output. As much as possible avoid nephrotoxic agents. (2) Hypocalcemia: Critical hypocalcemia with corrected calcium of 5.5 but surprisingly he has no symptom. He has received 2 g so far but would need quite a bit more than that. He is getting blood work done right now. Further dosing will be done after the Would suggest to do 1 g every hour x4 Magnesium is not low in fact it is high so would not need any supplement. Agree with checking vitamin D and PTH. Acute renal failure is associated with hypocalcemia but typically we do not see such severe drop but it is certainly possible. It is quite possible that his parathyroid gland is no longer making PTH. (3) Acute hyponatremia: Sodium is low in the setting of acute renal failure and severe bladder outlet obstruction. With ongoing diuresis sodium sodium. No further work-up is needed for the etiology of hyponatremia. Can change to normal saline. History of Present Illness Reason for Consultation: Acute renal failure and critical hypocalcemia Requesting Physician: Dr Carbajal Attending Physician: Dr Carbajal History of Present Illness 77/M with non-small cell lung cancer with metastasis to bone undergoing Keytruda treatment, drug-induced hypothyroidism, AAA without rupture, BPH and other medical problems listed below who was sent over to ED after abnormal CT scan from radiology appointment. Was being evaluated for palliative radiation due to worsening pain in right hip/back with outpatient MRI pelvis from 02/09/23 showed diffuse metastatic disease within the lumbosacral spine, sacrum, pelvis, left and right proximal femur. very Enlarged bladder seen on imaging and was sent to ED for further evaluation. He has had decreased urinary flow over the past 2 weeks. In the emergency department he has had a Wadsworth catheter placed and with that he has had more than 2 L of urine. Current urine is somewhat bloody secondary to Wadsworth trauma . Denies any confusion, lightheadedness, chest pain, shortness of breath, nausea, vomiting, abdominal pain, dysuria. Had a hard bowel movement 2 days ago. Daughter at bedside states patient has had decreased PO intake over the past few days and seems to have less of an appetite due to worsening pain in back and hips. Due for next Keytruda treatment in 1 week. Blood work in the emergency was significant for acute renal failure and critical hypocalcemia---Cr elevated at 5.91 (baseline Cr ~0.8) corrected calcium was only 5.5. However he had no symptoms of hypocalcemia which is very surprising. He has received 2 g of IV calcium so far and he has another blood work to be done right now. Sodium was also low at 124. Magnesium and phosphorus was elevated. Uric acid was slightly elevated. Patient feels completely normal other than his chronic bony pain related with metastatic cancer. Review of system-----somewhat reduced appetite for the last few days with decreased urine flow and chronic pain in his hip related with cancer. Total 12 system reviewed and negative Allergies Allergy/AdvReac Type Severity Reaction Status Date / Time No Known Allergies Allergy Unverified 02/18/23 13:23 Home Medications Medication Instructions Recorded Confirmed Type brimonidine 0.2 %-timolol 0.5 % 1 drp OPR BID 02/17/23 02/18/23 History eye drops dorzolamide (PF) 2 % (PF) eye drops 1 drp OPR TID 02/17/23 02/18/23 History gabapentin 100 mg capsule 100 mg PO HS 02/17/23 02/18/23 History latanoprost 0.005 % eye drops 1 drp OPR QPM 02/17/23 02/18/23 History (Xalatan) levothyroxine 75 mcg capsule 75 mcg PO DAILY 02/17/23 02/18/23 History sodium di- and 1 tab PO BID 02/17/23 02/18/23 History monophosphate-potassium phos monobasic 250 mg tablet (Phospho-Maxine Neutral) tamsulosin 0.4 mg capsule 0.4 mg PO DAILY 02/17/23 02/18/23 History Patient History Medical History Basal cell carcinoma nose and scalp BPH (benign prostatic hyperplasia) 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 Cataracts, bilateral 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 Non-small cell lung cancer 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 Tobacco use disorder Surgical History H/O inguinal hernia repair History of bronchoscopy History of cataract surgery Family History Other Alzheimer disease Kidney disease Social History Smoking Status: Current every day smoker Tobacco Type: Cigarettes Age Started Using Tobacco: 28; Cigarettes Per Day: 1/2-1 pack per day; Second Hand Exposure: Yes; Do You Dip or Chew Tobacco: No; Hx Alcohol Use: No Hx Substance Use: No Preferred Language: Greenlandic Communication Ability: Effective Visual Impairment: Partially Limited Hearing Ability: Normal Police Radio Dispatcher Required: No Beliefs That Will Affect Care: None marital status: / Current Living Situation: Alone current occupational status: retired 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 Constitutional: Very pleasant. Asking for food. Daughter at the bedside Neck: Supple no jugular venous distention Respiratory: Bilateral clear to auscultation Cardiovascular: Regular rate and rhythm. Soft systolic murmur heard. 1+ edema in the left lower extremity trace edema in the right Gastrointestinal (Abdomen): Abdomen is soft and nontender Skin: No rashes noted Results & Data Vital Signs (Past 12 Hours) Vital Signs Temp Pulse Resp BP Pulse Ox O2 Del Method 02/18/23 15:30 58 L 23 122/55 L 95 02/18/23 15:00 58 L 22 130/56 L 96 Room Air 02/18/23 14:30 62 20 105/64 95 Room Air 02/18/23 14:00 60 22 103/54 L 96 Room Air 02/18/23 13:41 59 L 02/18/23 11:26 36.5 C 62 16 116/67 95 Room Air Laboratory Results Reviewed in detail. Noted for acute renal failure with a creatinine of 5.9 and corrected calcium of 5.5 (1) Acute renal failure Acute renal failure type: unspecified Qualified Code(s): N17.9 - Acute kidney failure, unspecified
[2023-02-18] MEDS ORDERED: ONDANSETRON INJ 2 MG/ML 2 ML VIAL IV PRN (17:40)
[2023-02-18] MEDS ORDERED: POLYETHYLENE (MIRALAX) 17 GM PACK PO PRN (17:40)
[2023-02-18] MEDS ORDERED: ACETAMINOPHEN 500 MG TAB PO SCH (17:45)
[2023-02-18] MEDS ORDERED: Nursing to Pharmacy Communication SCH (18:15)
[2023-02-18 18:51] LABS: BUN Creatinine Ratio 9.4 (10-20); Calcium 4.6 mg/dl (8.6-10.3); Est GFR (African American) 13.5 ml/min; Est GFR (Non-African American) 11.7 ml/min; Potassium 3.7 mmol/L (3.5-5.1)
[2023-02-18] MEDS: DORZOLAMIDE HCL 2% OPH SOLN 10 ML BTL OPR SCH (20:14)
[2023-02-18] MEDS: TIMOLOL MALEATE 0.5% OP SOLN 5 ML BTL OPR SCH (20:21)
[2023-02-18] MEDS: DEXTROSE 5% 1,000 ML IV SCH (20:25)
[2023-02-18] MEDS: DEXTROSE 5% IV SCH ×3 (20:26→23:14)
[2023-02-18] MEDS: CALCIUM GLUCONATE IV SCH ×3 (20:26→23:14)
[2023-02-18] MEDS: BRIMONIDINE TARTRATE 0.2% 5ML OPR SCH (20:27)
[2023-02-18] MEDS: GABAPENTIN 100 MG CAP PO SCH (20:31)
[2023-02-18] MEDS: ACETAMINOPHEN 500 MG TAB PO SCH (20:31)
[2023-02-18] MEDS: LATANOPROST 0.005% OP SOLN 2.5 ML BTL OPR SCH (20:32)
[2023-02-18] MEDS ORDERED: DORZOLAMIDE HCL 2% OPH SOLN 10 ML BTL OP SCH (21:00)
[2023-02-18] MEDS ORDERED: HEPARIN SOD 5,000 UNIT/0.5 ML VIAL SQ SCH (22:00)
[2023-02-19 00:28] LABS: Hematocrit (blood only) 29.8 % (42.0-52.0); Hemoglobin 10.5 g/dl (14.0-18.0)
[2023-02-19 00:47] LABS: BUN Creatinine Ratio 10.7 (10-20); Calcium 4.8 mg/dl (8.6-10.3); Creatinine Clr Calc Pharmacy 16.4 ml/min; Est GFR (African American) 17.9 ml/min; Est GFR (Non-African American) 15.5 ml/min; Potassium 3.3 mmol/L (3.5-5.1)
[2023-02-19] MEDS ORDERED: POTASSIUM CHLORIDE CRTAB 20 MEQ TABCR PO STA ×2 (00:48→05:49)
[2023-02-19] MEDS: DEXTROSE 5% 1,000 ML IV SCH (04:25)
[2023-02-19 05:10] LABS: Hematocrit (blood only) 30.5 % (42.0-52.0); Hemoglobin 10.9 g/dl (14.0-18.0); Mean Corpuscular Hemoglobin 31.3 pg (25.0-34.0); Mean Corpuscular Hgb Conc 35.7 g/dL (32.0-36.0); Mean Corpuscular Volume 87.6 fL (80.0-100.0); Mean Platelet Volume 9.7 fL (9.4-12.4); Platelet Count 205 K/uL (130-400); RDW Coefficient of Variation 15.4 % (11.5-14.5); RDW Standard Deviation 49.1 fL (36.4-46.3); Red Blood Count 3.48 M/uL (4.70-6.10); White Blood Count 7.36 K/ul (4.8-10.8)
[2023-02-19 05:28] LABS: Albumin Level 2.7 gm/dl (3.4-5.0); Bilirubin Direct 0.1 mg/dl (0-0.2); Bilirubin,Total 0.3 mg/dl (0.2-1.0)
[2023-02-19] MEDS: LEVOTHYROXINE SODIUM 75 MCG TABLET PO SCH (05:29)
[2023-02-19 05:42] LABS: Calcium 4.8 mg/dl (8.6-10.3); Creatinine Clr Calc Pharmacy 19.3 ml/min; Est GFR (African American) 21.9 ml/min; Est GFR (Non-African American) 18.9 ml/min; Potassium 3.4 mmol/L (3.5-5.1)
[2023-02-19] MEDS ORDERED: STAT IV STA ×2 (05:48→10:42)
[2023-02-19] MEDS ORDERED: CALCIUM GLUCONATE 10% 2,000 MG in DEXTROSE 5% 50 ML IV ONE (06:00)
[2023-02-19] MEDS: ACETAMINOPHEN 500 MG TAB PO SCH ×3 (06:04→22:30)
[2023-02-19] MEDS: DORZOLAMIDE HCL 2% OPH SOLN 10 ML BTL OPR SCH ×3 (08:08→20:05)
[2023-02-19] MEDS: TIMOLOL MALEATE 0.5% OP SOLN 5 ML BTL OPR SCH ×2 (08:09→20:04)
[2023-02-19] MEDS: BRIMONIDINE TARTRATE 0.2% 5ML OPR SCH ×2 (08:09→20:04)
[2023-02-19] MEDS: TAMSULOSIN HCL 0.4 MG CAP PO SCH (08:10)
--- NOTE | 2023-02-19 10:25 | Nephrology Progress Note ---
Date of Service February 19, 2023 Assessment & Plan (1) Acute renal failure: Plan: Baseline creatinine completely normal at 0.9 . At this point the etiology of Non Oliguric CHAUNCEY is severe bladder outlet obstruction causing obstructive uropathy. -Renal functions has improved -Polyuria with@9.5 lit UOP, Low K ans low ca. - Start on D5-1/2 N with 40 meq KCL at 150mls/hr - Replace K -Keep levels >4 (2) Hypocalcemia: Plan: Critical hypocalcemia with corrected calcium of 5.5 but surprisingly he is a symptomatic. - Repaet calcium still cru=itically low - start on calcitriol 1mcg QID, Calcium infusion 1g q6, calcium carbonate 1500 mg TID -Measure ionized calcium Q12 - PTH is raised withnormal VD,Likley 2 HPT -Magnesium was high,expect improvemt. No replacment needed , Keep levels more than 2. - Acute renal failure is associated with hypocalcemia but typically we do not see such severe drop but it is certainly possible. (3) Acute hyponatremia: Plan: Sodium is low in the setting of acute renal failure and severe bladder outlet obstruction. With ongoing diuresis sodium sodium. No further work-up is needed for the etiology of hyponatremia. - improved. Admission and Anticipated Discharge Date Admission Date: February 18, 2023 Subjective Comfortable, Good UOP. Stable hemodynamics. Calcium still low, but asymptomatic. Review of Systems Review of Systems: All systems reviewed & are unremarkable except as noted in HPI & below Results & Data Vital Signs (Past 12 Hours) Vital Signs Temp Pulse Resp BP Pulse Ox O2 Del Method 02/19/23 08:22 36.8 C 63 16 103/64 94 Room Air 02/19/23 03:41 36.5 C 63 18 105/48 L 93 Room Air 02/19/23 00:22 59 L 102/53 L 02/18/23 23:51 36.7 C 62 17 92/40 L 92 Room Air Laboratory Results 02/19/23 04:46 02/19/23 04:46 (1) Acute renal failure Acute renal failure type: unspecified Qualified Code(s): N17.9 - Acute kidney failure, unspecified
--- NOTE | 2023-02-19 10:47 | Electrocardiogram Report ---
Test Reason : Blood Pressure : / mmHG Vent. Rate : 060 BPM Atrial Rate : 060 BPM P-R Int : 210 ms QRS Dur : 154 ms QT Int : 520 ms P-R-T Axes : 051 -74 -09 degrees QTc Int : 520 ms Sinus rhythm with 1st degree A-V block Right bundle branch block Left anterior fascicular block Bifascicular block Possible Septal infarct (cited on or before 18-FEB-2023) Abnormal ECG When compared with ECG of 18-FEB-2023 13:33, No significant change was found Confirmed by Vicente Aden ([id number]) on 02/19/2023 10:46:57 AM Referred By: REFERRED SELF Confirmed By:Vicente Aden
--- NOTE | 2023-02-19 10:49 | Electrocardiogram Report ---
Test Reason : Blood Pressure : / mmHG Vent. Rate : 063 BPM Atrial Rate : 063 BPM P-R Int : 200 ms QRS Dur : 150 ms QT Int : 516 ms P-R-T Axes : 055 -72 -12 degrees QTc Int : 528 ms Normal sinus rhythm Left atrial enlargement Right bundle branch block Left anterior fascicular block Bifascicular block Abnormal ECG When compared with ECG of 19-FEB-2023 00:12, (unconfirmed) Criteria for Septal infarct are no longer Present Confirmed by Vicente Aden ([id number]) on 02/19/2023 10:49:11 AM Referred By: REFERRED SELF Confirmed By:Vicente Aden
[2023-02-19] MEDS: D5W AND 1/2NSS + 20MEQ KCL 20 MEQ/1,000 ML BAG IV SCH ×2 (11:46→18:37)
[2023-02-19] MEDS: CALCIUM GLUCONATE 10% 1,000 MG in DEXTROSE 5% 50 ML IV SCH ×2 (11:46→18:36)
[2023-02-19] MEDS: CALCITRIOL 0.25 MCG CAPSULE PO SCH ×3 (12:06→22:30)
[2023-02-19] MEDS: CALCIUM CARBONATE 500 MG CHEWABLE TAB PO SCH ×2 (15:00→20:04)
--- NOTE | 2023-02-19 16:37 | Hospitalist Progress Note ---
Date of Service February 19, 2023 Assessment & Plan (1) Acute urinary retention: Plan: Patient is a 77 yr male with H/O Non-small cell lung cancer with metastasis to bone undergoing Keytruda treatment, drug-induced hypothyroidism, AAA without rupture, BPH and other medical problems listed below who presents with abnormal CT scan from radiology appointment and found to have CHAUNCEY 2/2 bladder outlet obstruction and hypocalcemia. Acute renal failure Severe chronic bladder outlet obstruction/obstructive uropathy -CT ABD/Pelvis:The bladder is largely decompressed around a Wadsworth catheter. The wall is thickened and irregular and there is pericystic infiltration. Correlate with clinical findings and urinalysis. There is moderate bilateral hydroureteronephrosis, right greater than left. The ureters are dilated to level of the bladder and no obstructing stone or lesion is seen. This may be related to bladder distention/outlet obstruction. Clinical correlation will be required. There is extensive/diffuse osteoblastic metastatic disease. In a male patient the appearance is most typical for prostate cancer. Correlate with the oncological history. Mildly enlarged retroperitoneal lymph nodes are pathologically determined but also suspicious for metastatic disease, especially if there is a history of prostate cancer. A large infrarenal abdominal aortic aneurysm measures 6.8 x 6.9 cm. There is no clear CT evidence of impending rupture at this time. 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 Cardiomegaly. Right larger than left pleural effusions with dependent consolidation. Trace abdominopelvic ascites. -- Baseline creatinine 0.9 Cr 5.9>3.0 Continue IV fluids Avoid nephrotoxic agents as able Appreciate nephrology input Continue Flomax, Wadsworth Hematuria CT as above Monitor H&H and transfuse as needed Urology consulted Avoid anticoagulation Hypokalemia Replete electrolytes as needed Monitor (2) Acute renal failure: Plan: Management as above (3) BPH (benign prostatic hyperplasia): Plan: Management as above (4) Hypocalcemia: Plan: Hypocalcemia Likely Secondary hyperparathyroidism Calcium level:4.4 Ionized Calcium level: 0.64 PTH:490 Vitamin D normal Continue calcitriol, IV calcium, calcium carbonate as per nephrology Monitor calcium levels Appreciate nephrology input (5) Acute hyponatremia: Plan: Sodium 124>135 IV fluids as per nephrology Appreciate nephrology input Monitor sodium levels closely (6) Non-small cell lung cancer: (7) Metastatic adenocarcinoma to bone: Plan: Following with Dr. Mccray, taking Keytruda Q6 weeks (due next week) Looking to establish with rad onc for palliative XRT Needs follow-up with oncology upon discharge (8) AAA (abdominal aortic aneurysm): Plan: Known condition, does not want to pursue surgical intervention and understands risk Imaging as above (9) Tobacco use disorder: Plan: Nicotine patch as needed DVT Px: SCDs Re:Hematuria Code status: DNR/DNI Admission and Anticipated Discharge Date Admission Date: February 18, 2023 Subjective Patient is seen and examined at bedside States having hematuria Eager to get discharged Denies any chest pain, dyspnea, dizziness, nausea, vomiting, abdominal pain Discussed with patient's daughter at bedside Also discussed with nephrology today Review of Systems Review of Systems: All systems reviewed & are unremarkable except as noted in Subjective Physical Exam Physical Exam: Physical Exam: Vitals signs as noted above General Appearance:Moderately built and nourished, no apparent distress Head: normocephalic, Atraumatic Eyes: normal inspection, EOMI Neck: supple, Trachea midline Respiratory/Chest: Decreased breath sounds, basal crackles, No accessory muscle use Cardiovascular: S1, S2, No murmur Abdomen/GI:Soft, Non tender, Bowel sounds present Extremities/Musculoskeletal:normal inspection, L >R LE edema Neurologic/Psych:AAOX3, grossly no focal neurological deficits Skin: normal color, warm Results & Data Results & Data Vital Signs (Past 12 Hours) Vital Signs Temp Pulse Pulse Resp BP Pulse Ox O2 Del Method 02/19/23 15:50 37.2 C 68 18 110/59 L 91 Room Air 02/19/23 08:00 Room Air 02/19/23 08:00 66 02/19/23 12:00 37.3 C 69 18 115/55 L 92 Room Air 02/19/23 08:22 36.8 C 63 16 103/64 94 Room Air Laboratory Results Short CBC 02/19/23 02/19/23 Range/Units 00:04 04:46 WBC 7.36 (4.8-10.8) K/ul Hgb 10.5 L 10.9 L (14.0-18.0) g/dl Hct 29.8 L 30.5 L (42.0-52.0) % Plt Count 205 (130-400) K/uL BMP 02/18/23 02/19/23 02/19/23 18:09 00:04 04:46 Sodium 131 L 132 L 135 L Potassium 3.7 3.3 L 3.4 L Chloride 99 102 106 Carbon Dioxide 21 21 21 BUN 42 H 38 H 33 H Creatinine 4.47 H D 3.54 H D 3.00 H D Glucose 87 177 H 132 H Calcium 4.6 L* 4.8 L* 4.8 L* Liver Function 02/19/23 Range/Units 04:46 Total Bilirubin 0.3 (0.2-1.0) mg/dl Direct Bilirubin 0.1 (0-0.2) mg/dl AST 15 (13-39) U/L ALT 5 L (7-52) U/L Alkaline Phosphatase 176 H (34-104) U/L Albumin 2.7 L (3.4-5.0) gm/dl (2) Acute renal failure Acute renal failure type: unspecified Qualified Code(s): N17.9 - Acute kidney failure, unspecified (6) Non-small cell lung cancer Laterality: unspecified laterality Qualified Code(s): C34.90 - Malignant neoplasm of unspecified part of unspecified bronchus or lung (8) AAA (abdominal aortic aneurysm) Abdominal aorta location: unspecified Presence of rupture: without rupture Qualified Code(s): I71.40 - Abdominal aortic aneurysm, without rupture, unspecified
[2023-02-19] MEDS: LATANOPROST 0.005% OP SOLN 2.5 ML BTL OPR SCH (20:05)
[2023-02-19] MEDS: GABAPENTIN 100 MG CAP PO SCH (20:06)
--- NOTE | 2023-02-19 21:11 | Urology Consultation ---
Date of Consultation February 19, 2023 Assessment & Plan (1) Urinary retention: (2) Hematuria: The patient has been admitted on the hospitalist service. Patient was noted to have acute kidney injury likely from bladder outlet obstruction. He has had a Wadsworth catheter placed with initial hematuria. I suspect the hematuria was from an over distended bladder and potentially irritation from the Wadsworth catheter. The hematuria has cleared at the present time and his renal function has begun to improve. Would recommend proceeding as follows: Maintain Wadsworth catheter to gravity drainage Wadsworth catheter becomes clogged manual irrigation can be attempted Follow serial labs Avoid nephrotoxins History of Present Illness Reason for Consultation: Urinary retention and hematuria Attending Physician: Ángel Thurman MD History of Present Illness This is a 77-year-old male who was admitted to [facility] on 02/18/2023. Patient is currently receiving Keytruda for non-small cell lung cancer and he was noted to have an abnormal CT scan showing an enlarged bladder with hydronephrosis and was therefore sent to the emergency department for further evaluation. Patient does report he has had decreased urinary stream for approximately 2 weeks stating that he would only dribble some urine out. He did not report any dysuria or hematuria. Because of this he was sent to the emergency department. Since mission the hospital the patient has had labs and imaging which independent reviewed. CT scan of the abdomen pelvis showed the patient had moderate bilateral hydronephrosis. The ureters were dilated to the level of the bladder and no obstructing stones or lesions were noted. Patient was noted to have extensive osteoblastic metastatic disease which is felt to be typical for prostate cancer. The patient's bladder was noted to be decompressed around the Wadsworth catheter but it was felt to be thickened and irregular with pericystic infiltration. A lumbar spine CT also showed extensive osteoblastic metastatic disease in the lumbar spine and sacrum. Current labs include a CBC were white blood cell count and platelet count were within normal range. Patient's most recent hemoglobin was from earlier this morning which was 10.9 with a hematocrit of 30.5. Chemistry profile shows the patient's sodium and potassium are 135 and 3.4. His BUN and creatinine are 33 and 3.0. Of note when the patient was admitted on 02/18/2023 his creatinine was 5.9. A urinalysis did show 1+ leukocyte Estrace but was otherwise not indicative of infection. At the time of my interview the patient was resting comfortably in bed and he was in no distress. Allergies Allergy/AdvReac Type Severity Reaction Status Date / Time No Known Allergies Allergy Unverified 02/18/23 13:23 Home Medications Medication Instructions Recorded Confirmed Type brimonidine 0.2 %-timolol 0.5 % 1 drp OPR BID 02/17/23 02/18/23 History eye drops dorzolamide (PF) 2 % (PF) eye drops 1 drp OPR TID 02/17/23 02/18/23 History gabapentin 100 mg capsule 100 mg PO HS 02/17/23 02/18/23 History latanoprost 0.005 % eye drops 1 drp OPR QPM 02/17/23 02/18/23 History (Xalatan) levothyroxine 75 mcg capsule 75 mcg PO DAILY 02/17/23 02/18/23 History sodium di- and 1 tab PO BID 02/17/23 02/18/23 History monophosphate-potassium phos monobasic 250 mg tablet (Phospho-Maxine Neutral) tamsulosin 0.4 mg capsule 0.4 mg PO DAILY 02/17/23 02/18/23 History Patient History Medical History Basal cell carcinoma nose and scalp BPH (benign prostatic hyperplasia) 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 Cataracts, bilateral 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 Non-small cell lung cancer 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 Tobacco use disorder Surgical History H/O inguinal hernia repair History of bronchoscopy History of cataract surgery Family History Other Alzheimer disease Kidney disease Social History Smoking Status: Heavy tobacco smoker Tobacco Type: Cigarettes Age Started Using Tobacco: 28; Cigarettes Per Day: 1/2-1 pack per day; Second Hand Exposure: Yes; Do You Dip or Chew Tobacco: No; Hx Alcohol Use: No Hx Substance Use: No Preferred Language: Stateless Communication Ability: Effective Visual Impairment: Partially Limited Hearing Ability: Normal Intake Clinician Required: No Beliefs That Will Affect Care: None marital status: / Current Living Situation: Alone current occupational status: retired 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, 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 Feels Safe at Home: Yes Safety Concerns: Feels Safe At This Time Diet: regular during the past year weight has: remained stable Assistive Devices: Cane Review of Systems Constitutional: no fever and no chills Ear, Nose, Mouth, Throat: no hearing loss Respiratory: no cough Cardiovascular: no chest pain Gastrointestinal: no abdominal pain and no nausea Genitourinary: + as per Subjective / HPI Musculoskeletal: + back pain Integumentary: no rash Neurologic: no localized weakness Physical Exam Constitutional: WD/WN, vitals as above Eyes: no conjunctival abnormality ENMT: Ears: no hearing impairment Mouth: no oropharynx abnormality Neck: trachea midline Respiratory: normal respiratory effort; no respiratory distress and no labored breathing Cardiovascular: Rate/Rhythm: regular rate and regular rhythm Gastrointestinal (Abdomen): Abdomen is soft, nonrigid, nontender to palpation Musculoskeletal: No calf tenderness Skin: no rashes Neurologic: moves all extremities Psychiatric: A+Ox3, euthymic affect Genitourinary: Wadsworth catheter is in place draining nonbloody urine. The catheter appeared patent and there were no visible clots in the catheter. Results & Data Vital Signs (Past 12 Hours) Vital Signs Temp Pulse Pulse Resp BP Pulse Ox O2 Del Method 02/19/23 19:00 36.8 C 95 H 20 121/73 97 Room Air 02/19/23 15:00 75 02/19/23 15:50 37.2 C 68 18 110/59 L 91 Room Air 02/19/23 12:00 37.3 C 69 18 115/55 L 92 Room Air PG Care Time/CCT Total # of Minutes Spent Total Time Spent with Patient: Total time spent is greater than 50% in coordination of care (as documented) at patient's floor/unit and/or counseling patient: Coding Level of Care Code 05169 INT INP/OBS CARE 3/75MIN Diagnoses Urinary retention R33.9 Hematuria R31.9
[2023-02-19 21:37] LABS: BUN Creatinine Ratio 11.9 (10-20); Calcium 6.1 mg/dl (8.6-10.3); Creatinine Clr Calc Pharmacy 29.9 ml/min; Est GFR (African American) 37.1 ml/min; Potassium 3.7 mmol/L (3.5-5.1)
[2023-02-20] MEDS: CALCIUM GLUCONATE 10% 1,000 MG in DEXTROSE 5% 50 ML IV SCH ×2 (00:30→06:12)
[2023-02-20] MEDS: D5W AND 1/2NSS + 20MEQ KCL 20 MEQ/1,000 ML BAG IV SCH ×2 (01:18→10:43)
[2023-02-20] MEDS: ACETAMINOPHEN 500 MG TAB PO SCH (06:10)
[2023-02-20] MEDS: CALCITRIOL 0.25 MCG CAPSULE PO SCH ×2 (06:12→10:43)
[2023-02-20] MEDS: LEVOTHYROXINE SODIUM 75 MCG TABLET PO SCH (06:12)
[2023-02-20 06:29] LABS: Hematocrit (blood only) 31.1 % (42.0-52.0); Hemoglobin 10.4 g/dl (14.0-18.0); Mean Corpuscular Hemoglobin 30.6 pg (25.0-34.0); Mean Corpuscular Hgb Conc 33.4 g/dL (32.0-36.0); Mean Corpuscular Volume 91.5 fL (80.0-100.0); Mean Platelet Volume 9.7 fL (9.4-12.4); Platelet Count 194 K/uL (130-400); RDW Coefficient of Variation 15.9 % (11.5-14.5); RDW Standard Deviation 52.7 fL (36.4-46.3); White Blood Count 7.46 K/ul (4.8-10.8)
[2023-02-20 07:37] LABS: BUN Creatinine Ratio 11.7 (10-20); Calcium 6.7 mg/dl (8.6-10.3); Creatinine Clr Calc Pharmacy 37.6 ml/min; Est GFR (Non-African American) 42.3 ml/min; Magnesium 2.7 mg/dl (1.7-2.4); Phosphorus 2.5 mg/dl (2.5-4.9); Potassium 3.6 mmol/L (3.5-5.1)
[2023-02-20] MEDS ORDERED: STAT IV STA (09:28)
[2023-02-20] MEDS: BRIMONIDINE TARTRATE 0.2% 5ML OPR SCH (09:30)
[2023-02-20] MEDS: TIMOLOL MALEATE 0.5% OP SOLN 5 ML BTL OPR SCH (09:30)
[2023-02-20] MEDS: CALCIUM CARBONATE 500 MG CHEWABLE TAB PO SCH (09:31)
[2023-02-20] MEDS: DORZOLAMIDE HCL 2% OPH SOLN 10 ML BTL OPR SCH (09:31)
[2023-02-20] MEDS: TAMSULOSIN HCL 0.4 MG CAP PO SCH (09:32)
--- NOTE | 2023-02-20 09:51 | Nephrology Progress Note ---
Date of Service February 20, 2023 Assessment & Plan (1) Acute renal failure: Plan: Baseline creatinine completely normal at 0.9 . At this point the etiology of Non Oliguric CHAUNCEY is severe bladder outlet obstruction causing obstructive uropathy. -Renal functions has improved -Polyuria improved--5.6 lit UOP, - Decrease D5-1/2 N with 20 meq KCL at 100mls/hr - Replace K -Keep levels >4 - Magnesium improved (2) Hypocalcemia: Plan: Critical hypocalcemia with corrected calcium of 5.5 but surprisingly he is asymptomatic.- Acute renal failure is associated with hypocalcemia but typically we do not see such severe drop but it is certainly possible. - Repeat calcium still low but improving - Continue on calcitriol 1mcg QID, Calcium infusion 1g q6, calcium carbonate 1500 mg TID-- -Measure ionized calcium Q12 - PTH is raised with normal VD,Likley 2 HPT (3) Acute hyponatremia: Plan: Sodium is low in the setting of acute renal failure and severe bladder outlet obstruction. With ongoing diuresis sodium has improved.. Admission and Anticipated Discharge Date Admission Date: February 18, 2023 Subjective Patient is seen and examined at bedside Eager to get discharged Denies any chest pain, dyspnea, dizziness, nausea, vomiting, abdominal pain Review of Systems Review of Systems: All systems reviewed & are unremarkable except as noted in HPI & below Physical Exam Physical Exam: General Appearance:Elderly, no apparent distress Head: normocephalic, Atraumatic Eyes: normal inspection, EOMI Neck: supple, Trachea midline Respiratory/Chest: Normal breath sounds, CTA, No accessory muscle use Cardiovascular: Irregularly irregular, +murmur Abdomen/GI:Soft, Non tender, Bowel sounds present Extremities/Musculoskeletal:normal inspection, Trace pedal edema Neurologic/Psych:AAOX3, grossly no focal neurological deficits Results & Data Vital Signs (Past 12 Hours) Vital Signs Temp Pulse Pulse Resp BP Pulse Ox O2 Del Method 02/20/23 08:35 64 02/20/23 08:30 Room Air 02/20/23 08:13 36.9 C 69 18 127/65 92 Room Air 02/19/23 22:00 56 L 02/20/23 03:32 36.4 C L 64 16 115/70 96 Room Air 02/19/23 23:08 37 C 67 18 120/67 96 Room Air Laboratory Results 02/20/23 06:04 07/30/23 06:04 (1) Acute renal failure Acute renal failure type: unspecified Qualified Code(s): N17.9 - Acute kidney failure, unspecified
--- NOTE | 2023-02-20 12:30 | Hospitalist Progress Note ---
Date of Service February 20, 2023 Assessment & Plan (1) Acute urinary retention: Plan: Patient is a 77 yr male with H/O Non-small cell lung cancer with metastasis to bone undergoing Keytruda treatment, drug-induced hypothyroidism, AAA without rupture, BPH and other medical problems listed below who presents with abnormal CT scan from radiology appointment and found to have CHAUNCEY 2/2 bladder outlet obstruction and hypocalcemia. Acute renal failure Severe chronic bladder outlet obstruction/obstructive uropathy -CT ABD/Pelvis:The bladder is largely decompressed around a Wadsworth catheter. The wall is thickened and irregular and there is pericystic infiltration. Correlate with clinical findings and urinalysis. There is moderate bilateral hydroureteronephrosis, right greater than left. The ureters are dilated to level of the bladder and no obstructing stone or lesion is seen. This may be related to bladder distention/outlet obstruction. Clinical correlation will be required. There is extensive/diffuse osteoblastic metastatic disease. In a male patient the appearance is most typical for prostate cancer. Correlate with the oncological history. Mildly enlarged retroperitoneal lymph nodes are pathologically determined but also suspicious for metastatic disease, especially if there is a history of prostate cancer. A large infrarenal abdominal aortic aneurysm measures 6.8 x 6.9 cm. There is no clear CT evidence of impending rupture at this time. 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 Cardiomegaly. Right larger than left pleural effusions with dependent consolidation. Trace abdominopelvic ascites. -- Baseline creatinine 0.9 Cr 5.9>3.0>1.9>1.54 Continue IV fluids Avoid nephrotoxic agents as able Appreciate nephrology input Continue Flomax, Wadsworth per Urology but patient prefers Wadsworth to be discontinued Patient prefers to leave AMA despite emplaning the risks and complications Hematuria CT as above Monitor H&H and transfuse as needed Appreciate Urology Input Avoid anticoagulation Hb stable Hypokalemia Replete electrolytes as needed Resolved Monitor (2) Acute renal failure: Plan: Management as above (3) BPH (benign prostatic hyperplasia): Plan: Management as above (4) Hypocalcemia: Plan: Hypocalcemia Likely Secondary hyperparathyroidism Calcium level:4.4>4.8>6.1>6.7 Ionized Calcium level: 0.64 PTH:490 Vitamin D normal Continue calcitriol, IV calcium, calcium carbonate as per nephrology Monitor calcium levels Appreciate nephrology input Prefers to be discharged despite explaining the risks and complications He understands that if left AMA, it could be detrimental even with incomplete treatment. Patient's daughter understands and agrees with decision of her father to leave AMA (5) Acute hyponatremia: Plan: Sodium 124>135>139 IV fluids as per nephrology Appreciate nephrology input Monitor sodium levels closely (6) Non-small cell lung cancer: (7) Metastatic adenocarcinoma to bone: Plan: Following with Dr. Mccray, taking Keytruda Q6 weeks (due next week) Looking to establish with rad onc for palliative XRT Needs follow-up with oncology upon discharge (8) AAA (abdominal aortic aneurysm): Plan: Known condition, does not want to pursue surgical intervention and understands risk Imaging as above (9) Tobacco use disorder: Plan: Nicotine patch as needed DVT Px: SCDs Re:Hematuria Code status: DNR/DNI Disposition Against Medical Advice Admission and Anticipated Discharge Date Admission Date: February 18, 2023 Subjective Patient is seen and examined at bedside Subjectively feels well No new complaints Prefers to be discharged despite explaining the risks and complications Denies any chest pain, dyspnea, dizziness, nausea, vomiting, abdominal pain Discussed with patient's daughter and nephrology today Renal function improving Ionized Calcium improving Review of Systems Review of Systems: All systems reviewed & are unremarkable except as noted in Subjective Physical Exam Physical Exam: Physical Exam: Vitals signs as noted above General Appearance:Moderately built and nourished, no apparent distress Head: normocephalic, Atraumatic Eyes: normal inspection, EOMI Neck: supple, Trachea midline Respiratory/Chest: Decreased breath sounds, basal crackles, No accessory muscle use Cardiovascular: S1, S2, No murmur Abdomen/GI:Soft, Non tender, Bowel sounds present Extremities/Musculoskeletal:normal inspection, L >R LE edema Neurologic/Psych:AAOX3, grossly no focal neurological deficits Skin: normal color, warm Results & Data Results & Data Vital Signs (Past 12 Hours) Vital Signs Temp Pulse Pulse Resp BP Pulse Ox O2 Del Method 02/20/23 11:19 36.8 C 63 18 134/74 95 Room Air 02/20/23 08:35 64 02/20/23 08:30 Room Air 02/20/23 08:13 36.9 C 69 18 127/65 92 Room Air 02/20/23 03:32 36.4 C L 64 16 115/70 96 Room Air Laboratory Results Short CBC 02/19/23 02/20/23 Range/Units 20:52 06:04 WBC 7.46 (4.8-10.8) K/ul Hgb 10.0 L 10.4 L (14.0-18.0) g/dl Hct 29.0 L 31.1 L (42.0-52.0) % Plt Count 194 (130-400) K/uL BMP 02/19/23 02/20/23 20:52 06:04 Sodium 136 139 Potassium 3.7 3.6 Chloride 107 110 H Carbon Dioxide 22 24 BUN 23 18 Creatinine 1.94 H D 1.54 H D Glucose 104 H 101 H Calcium 6.1 L 6.7 L (2) Acute renal failure Acute renal failure type: unspecified Qualified Code(s): N17.9 - Acute kidney failure, unspecified (6) Non-small cell lung cancer Laterality: unspecified laterality Qualified Code(s): C34.90 - Malignant neoplasm of unspecified part of unspecified bronchus or lung (8) AAA (abdominal aortic aneurysm) Abdominal aorta location: unspecified Presence of rupture: without rupture Qualified Code(s): I71.40 - Abdominal aortic aneurysm, without rupture, unspecified
[2023-02-20] MEDS ORDERED: CALCIUM GLUCONATE 10% 1,000 MG in DEXTROSE 5% 50 ML IV SCH (13:00)
--- NOTE | 2023-02-20 13:04 | Discharge Summary ---
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 Was being evaluated for palliative radiation due to worsening pain in right hip/back with outpatient MRI pelvis from 02/09/23 showed diffuse metastatic disease within the lumbosacral spine, sacrum, pelvis, left and right proximal femur. Enlarged bladder seen on imaging and was sent to ED for further evaluation. States that he has had decreased urinary flow over the past 2 weeks with more "dribbling" versus a steady stream that he had before. Has also had to wear a diaper. Denies any confusion, lightheadedness, chest pain, shortness of breath, nausea, vomiting, abdominal pain, dysuria. Had a hard bowel movement 2 days ago. Daughter at bedside states patient has had decreased PO intake over the past few days and seems to have less of an appetite due to worsening pain in back and hips. Has not taken any home meds in 3 days. Due for next Keytruda treatment in 1 week. Admission Exam Per Admitting Provider General Appearance:WD/WN, vitals as above, NAD, sitting up in bed, pleasant, conversing easily Head: normocephalic, atraumatic Eyes:normal inspection, PERRL, conjunctivae normal, anicteric sclerae ENT: hard of hearing, external ear and nose normal, oropharynx dry mucous membranes Neck: normal visual inspection, trachea midline, no thyromegaly Respiratory:normal respiratory effort, lungs clear to auscultation, no wheeze, rales, rhonchi. No accessory muscle use Cardiovascular: bradycardic rate, regular rhythm, no murmur, normal peripheral pulses, trace BLE edema. Vessels: no JVD Chest: normal inspection of chest Abdomen/GI: normal bowel sounds, soft, nontender, no hepatosplenomegaly Extremities/Musculoskeletal: + TTP of lumbar spine, R lower back and hip. No cyanosis or clubbing, extremities motor strength 5/5 Neurologic: PERRL, EOMI, accommodation nl, no face palsy, no dysarthria, CN's II-XI intact bilaterally and moves all extremities Psychiatric:A+Ox3, euthymic affect Skin: no rashes, normal color, warm/dry Principal Diagnosis Acute renal failure Severe chronic bladder outlet obstruction/obstructive uropathy Hematuria Acute hyponatremia Non-small cell lung cancer with metastasis Discharge Data Allergies Allergy/AdvReac Type Severity Reaction Status Date / Time No Known Allergies Allergy Unverified 02/18/23 13:23 Consultations 02/18/23 13:47 ED Decision to Admit Stat 02/18/23 15:09 Consult Nephrology Routine 02/19/23 08:00 Consult Urology Routine Procedures Performed Laboratory Results WBC 7.46 K/ul (4.8-10.8) 02/20/23 06:04 RBC 3.40 M/uL (4.70-6.10) L 02/20/23 06:04 Hgb 10.4 g/dl (14.0-18.0) L 02/20/23 06:04 Hct 31.1 % (42.0-52.0) L 02/20/23 06:04 MCV 91.5 fL (80.0-100.0) 02/20/23 06:04 MCH 30.6 pg (25.0-34.0) 02/20/23 06:04 MCHC 33.4 g/dL (32.0-36.0) 02/20/23 06:04 RDW Std Deviation 52.7 fL (36.4-46.3) H 02/20/23 06:04 RDW Coeff of Madeleine 15.9 % (11.5-14.5) H 02/20/23 06:04 Plt Count 194 K/uL (130-400) 02/20/23 06:04 MPV 9.7 fL (9.4-12.4) 02/20/23 06:04 Immature Gran % (Auto) 0.6 % 02/18/23 12:13 Neut % (Auto) 60.9 % 02/18/23 12:13 Lymph % (Auto) 28.2 % 02/18/23 12:13 Rawlins % (Auto) 8.3 % 02/18/23 12:13 Eos % (Auto) 1.6 % 02/18/23 12:13 Baso % (Auto) 0.4 % 02/18/23 12:13 Neut # (Auto) 6.37 K/uL (1.40-6.50) 02/18/23 12:13 Lymph # (Auto) 2.95 K/uL (1.2-3.4) 02/18/23 12:13 [place]lins # (Auto) 0.87 K/uL (0.11-0.59) H 02/18/23 12:13 Eos # (Auto) 0.17 K/uL (0-0.50) 02/18/23 12:13 Baso # (Auto) 0.04 K/uL (0-0.2) 02/18/23 12:13 Immature Gran # (Auto) 0.06 K/uL (0.01-0.20) 02/18/23 12:13 Sodium 139 mmol/L (136-145) 02/20/23 06:04 Potassium 3.6 mmol/L (3.5-5.1) 02/20/23 06:04 Chloride 110 mmol/L (98-107) H 02/20/23 06:04 Carbon Dioxide 24 mmol/L (21-32) 02/20/23 06:04 Anion Gap 5 (3-11) 02/20/23 06:04 BUN 18 mg/dl (6-23) 02/20/23 06:04 Creatinine 1.54 mg/dl (0.6-1.4) H D 02/20/23 06:04 Est Cr Clr Drug Dosing 37.6 ml/min 02/20/23 06:04 Est GFR ( Amer) 49.0 ml/min 02/20/23 06:04 Est GFR (Non-Af Amer) 42.3 ml/min 02/20/23 06:04 BUN/Creatinine Ratio 11.7 (10-20) 02/20/23 06:04 Glucose 101 mg/dl (70-99(Fasting)) H 02/20/23 06:04 Osmolality 278 mOsm/kg (280-300) L 02/18/23 12:13 Uric Acid 9.3 mg/dl (2.6-7.2) H 02/18/23 12:13 Calcium 6.7 mg/dl (8.6-10.3) L 02/20/23 06:04 Ionized Calcium 0.99 mmol/L (1.12-1.32) L 02/20/23 10:46 Phosphorus 2.5 mg/dl (2.5-4.9) D 07/30/23 06:04 Magnesium 2.7 mg/dl (1.7-2.4) H 02/20/23 06:04 Total Bilirubin 0.3 mg/dl (0.2-1.0) 02/19/23 04:46 Direct Bilirubin 0.1 mg/dl (0-0.2) 02/19/23 04:46 AST 15 U/L (13-39) 02/19/23 04:46 ALT 5 U/L (7-52) L 02/19/23 04:46 Alkaline Phosphatase 176 U/L (34-104) H 02/19/23 04:46 Total Creatine Kinase 285 U/L (30-223) H 02/18/23 12:13 Total Protein 5.0 gm/dl (6.0-8.3) L D 02/19/23 04:46 Albumin 2.7 gm/dl (3.4-5.0) L 02/19/23 04:46 Globulin 3.0 gm/dl (2.5-4.0) 02/18/23 12:13 Albumin/Globulin Ratio 1.0 (0.9-2) 02/18/23 12:13 25-OH Vitamin D Total 74.4 ng/ml (30-100) 02/18/23 15:38 PTH Intact 490.3 pg/ml (12.0-88.0) H 02/18/23 15:38 Urine Color Yellow 02/18/23 12:02 Urine Appearance Clear (Clear) 02/18/23 12:02 Urine pH 5.5 (4.5-7.5) 02/18/23 12:02 Ur Specific [place] 1.007 (1.000-1.030) 02/18/23 12:02 Urine Protein Negative (Negative) 02/18/23 12:02 Urine Glucose (UA) Negative (Negative) 02/18/23 12:02 Urine Ketones Negative (Negative) 02/18/23 12:02 Urine Blood 3+ (Negative) H 02/18/23 12:02 Urine Nitrite Negative (Negative) 02/18/23 12:02 Urine Bilirubin Negative (Negative) 02/18/23 12:02 Urine Urobilinogen Negative (Negative) 02/18/23 12:02 Ur Leukocyte Esterase 1+ (Negative) H 02/18/23 12:02 Urine WBC (Auto) 1-5 /hpf (0-5) 02/18/23 12:02 Urine RBC (Auto) 5-10 /hpf (0-4) H 02/18/23 12:02 U Hyaline Cast (Auto) 0 /lpf (0-5) 02/18/23 12:02 U Epithel Cells (Auto) 0-5 /lpf (0-5) 02/18/23 12:02 Urine Bacteria (Auto) Negative (Negative) 02/18/23 12:02 Impressions Abdomen/Pelvis CT 02/18/23 12:05 CT SCAN OF THE ABDOMEN AND PELVIS WITHOUT IV CONTRAST CLINICAL HISTORY: Dysuria. Inability to void. Lung cancer. COMPARISON STUDY: No priors. TECHNIQUE: CT scan of the abdomen and pelvis is performed from the lung bases to the proximal femora. Images are reviewed in the axial, sagittal, and coronal planes. IV contrast was not administered for this examination. A dose lowering technique was utilized adhering to the principles of ALARA. CT DOSE: 806.43 mGy.cm FINDINGS: Lung bases: The heart is enlarged and without pericardial effusion. The coronary arteries are densely calcified. There are right larger than left pleural effusions with dependent consolidation. Liver: The unenhanced liver is normal in size, contour, and attenuation. There is no intrahepatic biliary ductal dilatation. Gallbladder: Unremarkable. Spleen: Normal in size and attenuation. Pancreas: Unremarkable. Adrenal glands: Bilateral adrenal nodules measure up to 3.[address] criteria for fat-containing adenomas. Kidneys: The unenhanced kidneys are normal in size. There is moderate bilateral hydroureteronephrosis, right greater than left. No renal calculi are identified and there is no evidence of ureteral stone. There is no evidence of contour deforming renal mass lesion. Abdominal vasculature: There is advanced atherosclerotic calcification of the ab dominal aorta. There is a large infrarenal abdominal aortic aneurysm. This measures 6.8 x 6.9 cm (AP times transverse), and the aneurysm sac extends approximately 12 cm in craniocaudal length. 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 A right internal iliac artery aneurysm measures up to 2.8 cm. There is ectasia of the right superficial femoral artery which measures up to 1.7 cm in diameter. Bowel: There is no bowel obstruction. Moderate fecal retention is seen throughout the colon. The appendix is well-visualized and normal. Peritoneum: There is trace abdominopelvic ascites. No intraperitoneal free air is seen. Lymphadenopathy: Mildly enlarged retroperitoneal lymph nodes measure up to 13 mm in length. Pelvic viscera: The prostate gland is enlarged and heterogeneous. The bladder is largely decompressed around a Wadsworth catheter. The bladder wall is thickened/trabeculated indicating chronic outlet obstruction. There are foci of intraluminal gas. There is pericystic infiltration. Skeletal structures: There is evidence of extensive multifocal osteoblastic metastatic disease. There is complete replacement of the sacrum and bony pelvis. Large lesions are also seen throughout the imaged thoracolumbar spine. IMPRESSION: 1. The bladder is largely decompressed around a Wadsworth catheter. The wall is thickened and irregular and there is pericystic infiltration. Correlate with clinical findings and urinalysis. 2. There is moderate bilateral hydroureteronephrosis, right greater than left. The ureters are dilated to level of the bladder and no obstructing stone or lesion is seen. This may be related to bladder distention/outlet obstruction. Clinical correlation will be required. 3. There is extensive/diffuse osteoblastic metastatic disease. In a male patient the appearance is most typical for prostate cancer. Correlate with the oncological history. 4. Mildly enlarged retroperitoneal lymph nodes are pathologically determined but also suspicious for metastatic disease, especially if there is a history of prostate cancer. 5. A large infrarenal abdominal aortic aneurysm measures 6.8 x 6.9 cm. There is no clear CT evidence of impending rupture at this time. If not already performed, vascular surgical evaluation is advised. 6. 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 7. Cardiomegaly. 8. Right larger than left pleural effusions with dependent consolidation. 9. Trace abdominopelvic ascites. 10. Additional findings as above. ACT 112: Negative or not required by law. Electronically signed by: Jorge Alberto Langley M.D. 02/18/2023 1:[address] 02/18/23 12:[address] DOSE: HISTORY: lung ca, eval for bony metastatic disease or cord comp TECHNIQUE: Multiaxial CT images of the lumbar spine were performed and reformatted in the sagittal and coronal plane without the use of contrast. A dose lowering technique was utilized adhering to the principles of ALARA. COMPARISON: None. FINDINGS: Extensive osteoblastic metastatic disease seen throughout the lumbar spine and sacrum. No acute fracture or subluxation within the lumbar spine.. There is fusion of the L1-L2 vertebral bodies. Focal indentation at the inferior endplate of L5 is likely chronic. There is moderate disc space narrowing at L4- L5. There is mild disc space narrowing at L2-L3 and L3-L4. Moderate to severe facet degenerative changes most pronounced within the lower lumbar spine. The abdominal aortic and left common iliac artery aneurysms are better appreciated on the same day abdomen and pelvis CT. Mild bilateral hydronephrosis is also noted. There is a 3 cm low-density left adrenal gland nodule. Evaluation the central canal is nearly nondiagnostic due to the CT technique. However, there is no high-grade central canal narrowing. No definite soft tissue masses within the lumbar canal. No definite paravertebral soft tissue masses identified. IMPRESSION: 1. 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 2. No acute fractures within the lumbar spine. 3. 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 4. No definite epidural or paravertebral soft tissue masses. No high-grade central canal narrowing by CT technique. ACT 112: Negative or not required by law. Electronically signed by: Jaspreet Nathan M.D. 02/18/2023 1:01 PM Ordered Studies 02/18/23 12:05 CT lumbar spine wo con Stat CT stones [CT abd pelvis wo con] Stat Hospital Course (1) Acute urinary retention: Patient is a 77 yr male with H/O Non-small cell lung cancer with metastasis to bone undergoing Keytruda treatment, drug-induced hypothyroidism, AAA without rupture, BPH and other medical problems listed below who presents with abnormal CT scan from radiology appointment and found to have CHAUNCEY 2/2 bladder outlet obstruction and hypocalcemia. Acute renal failure Severe chronic bladder outlet obstruction/obstructive uropathy -CT ABD/Pelvis:The bladder is largely decompressed around a Wadsworth catheter. The wall is thickened and irregular and there is pericystic infiltration. Correlate with clinical findings and urinalysis. There is moderate bilateral hydroureteronephrosis, right greater than left. The ureters are dilated to level of the bladder and no obstructing stone or lesion is seen. This may be related to bladder distention/outlet obstruction. Clinical correlation will be required. There is extensive/diffuse osteoblastic metastatic disease. In a male patient the appearance is most typical for prostate cancer. Correlate with the oncological history. Mildly enlarged retroperitoneal lymph nodes are pathologically determined but also suspicious for metastatic disease, especially if there is a history of prostate cancer. A large infrarenal abdominal aortic aneurysm measures 6.8 x 6.9 cm. There is no clear CT evidence of impending rupture at this time. 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 Cardiomegaly. Right larger than left pleural effusions with dependent consolidation. Trace abdominopelvic ascites. -- Baseline creatinine 0.9 Cr 5.9>3.0>1.9>1.54 Continue IV fluids Avoid nephrotoxic agents as able Appreciate nephrology input Continue Flomax, Wadsworth per Urology but patient prefers Wadsworth to be discontinued Patient prefers to leave AMA despite emplaning the risks and complications Hematuria CT as above Monitor H&H and transfuse as needed Appreciate Urology Input Avoid anticoagulation Hb stable Hypokalemia Replete electrolytes as needed Resolved Monitor (2) Acute renal failure: Management as above (3) BPH (benign prostatic hyperplasia): Management as above (4) Hypocalcemia: Hypocalcemia Likely Secondary hyperparathyroidism Calcium level:4.4>4.8>6.1>6.7 Ionized Calcium level: 0.64 PTH:490 Vitamin D normal Continue calcitriol, IV calcium, calcium carbonate as per nephrology Monitor calcium levels Appreciate nephrology input Prefers to be discharged despite explaining the risks and complications He understands that if left AMA, it could be detrimental even with incomplete treatment. Patient's daughter understands and agrees with decision of her father to leave AMA (5) Acute hyponatremia: Sodium 124>135>139 IV fluids as per nephrology Appreciate nephrology input Monitor sodium levels closely (6) Non-small cell lung cancer: (7) Metastatic adenocarcinoma to bone: Following with Dr. Mccray, taking Keytruda Q6 weeks (due next week) Looking to establish with rad onc for palliative XRT Needs follow-up with oncology upon discharge (8) AAA (abdominal aortic aneurysm): Known condition, does not want to pursue surgical intervention and understands risk Imaging as above (9) Tobacco use disorder: Nicotine patch as needed DVT Px: SCDs Re:Hematuria Code status: DNR/DNI Disposition Against Medical Advice Total Time Total Time Spent Total Time Spent (In Minutes): 54 minutes Discharge Plan Discharge Items Patient Disposition: Against Medical Advice Reason For Visit: CHAUNCEY, URINARY RETENTION, HYPOCALCEMIA Activity: As commented below Non-emergency contact: Primary Care Provider and Can Maker Follow-up/Referrals: Trey Mancuso MD [Primary Care Provider] - [facility] [employer] Provider Instructions: Follow-up with your primary care physician Dr. Mancuso in 1 week With your software systems architect as advised. Seek immediate medical attention if your symptoms reoccur or worsen Please take all medications as instructed on discharge list below. Please call if you have any questions or problems. You can reach a [facility] hospitalist on duty at [facility] 24 hours a day by calling [phone] Pending Studies at Discharge: No Stand-Alone Forms: My [facility] [place], Smoking Cessation Medications and DC Order Prescriptions: New calcium carbonate [Tums] 200 mg calcium (500 mg) Tablet,Chewable 1,500 mg PO TID Qty: 30 0RF Continued brimonidine-timolol 0.2-0.5 % drops 1 drp OPR BID Patient Comments: right eye latanoprost [Xalatan] 0.005 % drops 1 drp OPR QPM Patient Comments: right eye tamsulosin 0.4 mg capsule 0.4 mg PO DAILY Phospho-Maxine 250 Neutral 250 mg tablet 1 tab PO BID dorzolamide (PF) 2 % drops 1 drp OPR TID levothyroxine 75 mcg capsule 75 mcg PO DAILY gabapentin 100 mg capsule 100 mg PO HS Discharge Orders: Left Against Medical Advice (Routine); Ordered 02/20/23 Ordered By: Ángel Thurman Admission Data Admit Date/Time: 02/18/23 14:09 Attending Provider: Ángel Thurman Admit Provider: Zakia Carbajal Primary Care Provider: Trey Mancuso Other Providers: Margarito Paulino ; Zakia Carbajal ; Nino Cobian ; Javi Atwood ; Ron Campoverde ; Eva Streeter ; Jovani Fraire ; Shonda Irizarry,Debra A. ; Casey Baker ; Shan De La Rosa ; Malia Tan ; Portillo Lopez ; Dimitry Slater
== END 2023-02-20 13:00 | disposition left against medical advice (07) | DRG 683 ==
LOC: ED 11:21 → 2S 14:09 → SUATTDRO 14:09 → 2S 17:21

== ENCOUNTER 2023-02-25 11:06 | Inpatient (IN) ==
[2023-02-25] MEDS ORDERED: SODIUM CHLORIDE 0.9% 500 ML IV SCH (11:30)
[2023-02-25] MEDS ORDERED: LIDOCAINE 2% JELLY 5 ML TUBE EXT ONE (11:36)
--- NOTE | 2023-02-25 11:39 | Emergency Department Note ---
Impression & Plan CHAUNCEY (acute kidney injury), Acute urinary retention, Hypocalcemia, Anemia ED Provider Note NAME: ROLY SALTER AGE: 77 SEX: M : 1945 ARRIVES VIA: Walk-In INFORMANT: [Patient] ED PROVIDER(S): [Jorge Alberto Staples MD] CHIEF COMPLAINT: Abnormal laboratories HISTORY OF PRESENT ILLNESS: The patient is a 77-year-old male with metastatic lung cancer. The cancer has spread to his bones. He was discharged from our hospital on 20 February. He left AMA. He had been in for urinary retention with renal failure. He no longer has a Wadsworth catheter in place. The patient had laboratory work done yesterday. His calcium was low and his creatinine had increased to over 3. He left the hospital with a creatinine value of about 1.5. The patient admits that he is not able to urinate properly. He feels his abdomen is a bit more distended than baseline. He has not had nausea or vomiting or fever, no cough, shortness of breath or chest pain. He has noticed some increasing pedal edema though. PMHx/PSHx: See Below SOCIAL HISTORY: See Below. PHYSICAL EXAM: GENERAL: Patient is in no acute distress. HEENT: No acute trauma, normocephalic atraumatic, mucous membranes moist, no nasal congestion. NECK: No stridor, no adenopathy, no meningismus, trachea is midline. LUNGS: Few scattered crackles at both bases, no wheezing, no respiratory distress. HEART: Without murmurs gallops or rubs, regular rate and rhythm. ABDOMEN: Soft, the abdomen is distended. His bladder appears to be distended to the umbilicus. EXTREMITIES: No cyanosis, moderate bilateral pedal edema, full range of motion of all the joints without pain or difficulty, no signs for acute trauma. NEUROLOGIC: Oriented x 3, no acute motor or sensory deficits, no focal weakness. SKIN: No rash, no jaundice, no diaphoresis. DIFFERENTIAL DIAGNOSIS: Urinary retention, renal failure, UTI, electrolyte imbalance, anemia, among others. EMERGENCY DEPARTMENT COURSE/PROCEDURES: Prior/Outside records reviewed: Recent discharge summary. ECG per my interpretation: Indication was abnormal laboratories. The ECG shows a normal sinus rhythm with a right bundle branch block. The rate is 71. There is no ST elevation, no PVCs. The QTc is 502. Continuous Cardiac Monitoring per my interpretation: An order was placed for continuous cardiac monitoring. The monitor shows a rate of 72 with normal sinus rhythm. With Wadsworth catheter placement, 2 L of urine drained consistent with significant urinary retention. MEDICAL DECISION MAKING: There is no leukocytosis. A mild anemia was seen with a hemoglobin of 11. The patient carries a history of anemia, his hemoglobin is actually improved today compared to recent testing. There is a normal platelet count. Creatinine is elevated at 3.63, this demonstrates some acute kidney injury. Calcium was low at 5.7. Alk phos somewhat elevated, the remaining liver enzymes were unremarkable. The alk phos elevation has been documented before and is likely from his metastatic cancer. ECG shows a normal sinus rhythm with a right bundle branch block, no acute ischemia per my review. Cardiac enzyme testing x1 is not consistent with acute cardiac injury. Total CK was not elevated making rhabdomyolysis unlikely. Urinalysis showed blood, no findings of infection. A Wadsworth catheter was placed and around 2 L of urine drained. The patient's abdomen was no longer distended after Wadsworth catheter placement. The patient presents with what appears to be urinary retention. This has led to some acute kidney injury. The patient is hypocalcemic. Patient will require a hospital stay. The patient was given IV saline, 500 cc. He received IV calcium gluconate. The patient is doing well currently. I did speak with case management, the on- call hospitalist has been consulted. DISPOSITION: Patient's presentation and findings warrant a hospital stay. 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 Tobacco use disorder Surgical History H/O inguinal hernia repair History of bronchoscopy History of cataract surgery Family History Other Alzheimer disease Kidney disease Social History Smoking Status: Current every day smoker Tobacco Type: Cigarettes Age Started Using Tobacco: 28; Cigarettes Per Day: 10; Second Hand Exposure: Yes; Do You Dip or Chew Tobacco: No; Hx Alcohol Use: No Hx Substance Use: No Preferred Language: Wolof Communication Ability: Effective Visual Impairment: Partially Limited Hearing Ability: Normal Electrician Control Equipment Required: No Beliefs That Will Affect Care: None marital status: / Current Living Situation: Alone Current Living Situation Comment: Lives alone with 2 dogs current occupational status: retired 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, 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 Feels Safe at Home: Yes Diet: regular during the past year weight has: remained stable Assistive Devices: Cane, Denture - Upper, Denture - Lower and Glasses Allergies Allergies Allergy/AdvReac Type Severity Reaction Status Date / Time No Known Allergies Allergy Unverified 02/18/23 13:23 Home Meds Home Medications Medication Instructions Recorded Confirmed brimonidine 0.2 %-timolol 0.5 % 1 drp OPR BID 02/17/23 02/25/23 eye drops dorzolamide (PF) 2 % (PF) eye drops 1 drp OPR TID 02/17/23 02/25/23 gabapentin 100 mg capsule 100 mg PO HS 02/17/23 02/25/23 latanoprost 0.005 % eye drops 1 drp OPR QPM 02/17/23 02/25/23 (Xalatan) levothyroxine 75 mcg capsule 75 mcg PO DAILY 02/17/23 02/25/23 sodium di- and 1 tab PO BID 02/17/23 02/25/23 monophosphate-potassium phos monobasic 250 mg tablet (Phospho-Maxine Neutral) tamsulosin 0.4 mg capsule 0.4 mg PO HS 02/17/23 02/25/23 netarsudil 0.02 % eye drops 1 drp ophthalmic (eye) 02/25/23 02/25/23 (Rhopressa) Previous Rx's Medication Instructions Recorded calcium carbonate 200 mg calcium 1,500 mg PO TID #30 tabs 02/20/23 (500 mg) chewable tablet (Tums) Results & Data (ED) Vital Signs Vital Signs - 24 hr 02/25/23 11:11 02/25/23 11:45 02/25/23 11:46 Temperature 36.8 C Temperature Source Temporal Artery Scan Pulse Rate 82 Pulse Rate [Apical] 72 Pulse Rhythm [Apical] Regular Respiratory Rate 16 18 Respiratory Effort / Characteristics Non-Labored Spontaneous Respiratory Depth Normal Respiratory Pattern Regular Blood Pressure 113/69 Blood Pressure [Right Arm] 117/60 Blood Pressure Mean 83 Blood Pressure Mean [Right Arm] 79 Blood Pressure Position [Right Arm] Lying Pulse Oximetry 96 95 95 Oxygen Delivery Method Room Air Room Air Room Air Sepsis Recent Fever Within 48 Hours No Sepsis New/Unexplained Change in Mental Status N/A Sepsis Action Taken by Nursing No Action Required 02/25/23 12:18 Temperature Temperature Source Pulse Rate 71 Pulse Rate [Apical] Pulse Rhythm [Apical] Respiratory Rate Respiratory Effort / Characteristics Respiratory Depth Respiratory Pattern Blood Pressure Blood Pressure [Right Arm] Blood Pressure Mean Blood Pressure Mean [Right Arm] Blood Pressure Position [Right Arm] Pulse Oximetry Oxygen Delivery Method Sepsis Recent Fever Within 48 Hours Sepsis New/Unexplained Change in Mental Status Sepsis Action Taken by Long Term Medications Current Medication List: was personally reviewed by me Laboratory Data Attestation: I reviewed the patient's lab results. 02/25/23 11:34 02/25/23 11:34 Lab Results 02/25/23 02/25/23 02/25/23 Range/Units 11:34 11:34 11:54 WBC 7.58 (4.8-10.8) K/ul RBC 3.58 L (4.70-6.10) M/uL Hgb 11.0 L (14.0-18.0) g/dl Hct 32.8 L (42.0-52.0) % MCV 91.6 (80.0-100.0) fL MCH 30.7 (25.0-34.0) pg MCHC 33.5 (32.0-36.0) g/dL RDW Std Deviation 56.6 H (36.4-46.3) fL RDW Coeff of Madeleine 16.8 H (11.5-14.5) % Plt Count 176 (130-400) K/uL MPV 10.0 (9.4-12.4) fL Immature Gran % (Auto) 1.2 % Neut % (Auto) 59.7 % Lymph % (Auto) 27.4 % [place]born % (Auto) 8.6 % Eos % (Auto) 2.6 % Baso % (Auto) 0.5 % Neut # (Auto) 4.52 (1.40-6.50) K/uL Lymph # (Auto) 2.08 (1.2-3.4) K/uL [place]born # (Auto) 0.65 H (0.11-0.59) K/uL Eos # (Auto) 0.20 (0-0.50) K/uL Baso # (Auto) 0.04 (0-0.2) K/uL Immature Gran # (Auto) 0.09 (0.01-0.20) K/uL Sodium 137 (136-145) mmol/L Potassium 4.0 (3.5-5.1) mmol/L Chloride 104 (98-107) mmol/L Carbon Dioxide 23 (21-32) mmol/L Anion Gap 10 (3-11) BUN 33 H (6-23) mg/dl Creatinine 3.63 H (0.6-1.4) mg/dl Est Cr Clr Drug Dosing 16.0 ml/min Est GFR ( Amer) 17.4 ml/min Est GFR (Non-Af Amer) 15.0 ml/min BUN/Creatinine Ratio 9.1 L (10-20) Glucose 108 H (70-99(Fasting)) mg/dl Calcium 5.7 L* (8.6-10.3) mg/dl Ionized Calcium (1.12-1.32) mmol/L Phosphorus 5.6 H (2.5-4.9) mg/dl Magnesium 2.7 H (1.7-2.4) mg/dl Total Bilirubin 0.4 (0.2-1.0) mg/dl AST 20 (13-39) U/L ALT 7 (7-52) U/L Alkaline Phosphatase 237 H (34-104) U/L Total Creatine Kinase 138 (30-223) U/L Troponin I High Sens 10.0 (0-20) pg/ml Total Protein 6.4 (6.0-8.3) gm/dl Albumin 3.5 (3.4-5.0) gm/dl Globulin 2.9 (2.5-4.0) gm/dl Albumin/Globulin Ratio 1.2 (0.9-2) Urine Color Yellow Urine Appearance Clear (Clear) Urine pH 7.0 (4.5-7.5) Ur Specific [place] 1.008 (1.000-1.030) Urine Protein Trace H (Negative) Urine Glucose (UA) Negative (Negative) Urine Ketones Negative (Negative) Urine Blood 3+ H (Negative) Urine Nitrite Negative (Negative) Urine Bilirubin Negative (Negative) Urine Urobilinogen Negative (Negative) Ur Leukocyte Esterase Trace H (Negative) Urine WBC (Auto) 1-5 (0-5) /hpf Urine RBC (Auto) >30 H (0-4) /hpf U Hyaline Cast (Auto) 1-5 (0-5) /lpf U Epithel Cells (Auto) 5-10 H (0-5) /lpf Urine Bacteria (Auto) Negative (Negative) 02/25/23 Range/Units 12:16 WBC (4.8-10.8) K/ul RBC (4.70-6.10) M/uL Hgb (14.0-18.0) g/dl Hct (42.0-52.0) % MCV (80.0-100.0) fL MCH (25.0-34.0) pg MCHC (32.0-36.0) g/dL RDW Std Deviation (36.4-46.3) fL RDW Coeff of Madeleine (11.5-14.5) % Plt Count (130-400) K/uL MPV (9.4-12.4) fL Immature Gran % (Auto) % Neut % (Auto) % Lymph % (Auto) % Sanborn % (Auto) % Eos % (Auto) % Baso % (Auto) % Neut # (Auto) (1.40-6.50) K/uL Lymph # (Auto) (1.2-3.4) K/uL Sanborn # (Auto) (0.11-0.59) K/uL Eos # (Auto) (0-0.50) K/uL Baso # (Auto) (0-0.2) K/uL Immature Gran # (Auto) (0.01-0.20) K/uL Sodium (136-145) mmol/L Potassium (3.5-5.1) mmol/L Chloride (98-107) mmol/L Carbon Dioxide (21-32) mmol/L Anion Gap (3-11) BUN (6-23) mg/dl Creatinine (0.6-1.4) mg/dl Est Cr Clr Drug Dosing ml/min Est GFR ( Amer) ml/min Est GFR (Non-Af Amer) ml/min BUN/Creatinine Ratio (10-20) Glucose (70-99(Fasting)) mg/dl Calcium (8.6-10.3) mg/dl Ionized Calcium 0.67 L* (1.12-1.32) mmol/L Phosphorus (2.5-4.9) mg/dl Magnesium (1.7-2.4) mg/dl Total Bilirubin (0.2-1.0) mg/dl AST (13-39) U/L ALT (7-52) U/L Alkaline Phosphatase (34-104) U/L Total Creatine Kinase (30-223) U/L Troponin I High Sens (0-20) pg/ml Total Protein (6.0-8.3) gm/dl Albumin (3.4-5.0) gm/dl Globulin (2.5-4.0) gm/dl Albumin/Globulin Ratio (0.9-2) Urine Color Urine Appearance (Clear) Urine pH (4.5-7.5) Ur Specific [place] (1.000-1.030) Urine Protein (Negative) Urine Glucose (UA) (Negative) Urine Ketones (Negative) Urine Blood (Negative) Urine Nitrite (Negative) Urine Bilirubin (Negative) Urine Urobilinogen (Negative) Ur Leukocyte Esterase (Negative) Urine WBC (Auto) (0-5) /hpf Urine RBC (Auto) (0-4) /hpf U Hyaline Cast (Auto) (0-5) /lpf U Epithel Cells (Auto) (0-5) /lpf Urine Bacteria (Auto) (Negative) Administered Medications Calcium Carbonate (Calcium Carbonate 500 Mg Chewable Tab) 1,500 mg PO TID [facility] Stop: 03/27/23 16:03 Last Admin: 02/25/23 17:13 Dose: 1,500 mg Documented By: AMS Sodium Chloride (1/2 Nss) 1,000 mls @ 125 mls/hr IV .Q8H [facility] Stop: 02/26/23 01:14 Last Admin: 02/25/23 17:17 Dose: 125 mls/hr Documented By: AMS Calcium Gluconate 1,000 mg/ (Dextrose) 60 mls @ 240 mls/hr IV Q6H [facility] Stop: 02/27/23 17:14 Last Infusion: 02/25/23 18:15 Dose: 0 mls/hr Documented By: Admin: 02/25/23 18:00 Dose: 240 mls/hr Documented By: ARSALAN Discontinued Medications Acetaminophen (Acetaminophen 325 Mg Tab) 650 mg PO NOW STA Stop: 02/25/23 13:27 Last Admin: 02/25/23 14:08 Dose: 650 mg Documented By: LUKE Sodium Chloride (Nss) 500 mls @ 999 mls/hr IV .Q31M [facility] Stop: 02/25/23 12:00 Last Infusion: 02/25/23 12:56 Dose: 0 mls/hr Documented By: Admin: 02/25/23 11:54 Dose: 999 mls/hr Documented By: LUKE Calcium Gluconate () 1,000 mg in 60 mls @ 240 mls/hr IV NOW STA Stop: 02/25/23 12:42 Last Infusion: 02/25/23 13:31 Dose: 0 mls/hr Documented By: Admin: 02/25/23 13:02 Dose: 240 mls/hr Documented By: LUKE Lidocaine HCl (Lidocaine 2% Jelly 5 Ml Tube) 5 ml EXT NOW ONE Stop: 02/25/23 11:37 Last Admin: 02/25/23 11:52 Dose: 5 ml Documented By: LUKE Miscellaneous (Stat Iv) 1 each N/A NOW STA Stop: 02/25/23 17:12 Last Admin: 02/25/23 17:25 Dose: Not Given Documented By: ARSALAN Discharge Plan Visit Data Chief Complaint: Abnormal Labs/Diagnostic Testing Stated Complaint: REF BY DOC; ABNORMAL LABS ED Provider: Jorge Alberto Staples Discharge Problem: CHAUNCEY (acute kidney injury), Acute urinary retention, Hypocalcemia, Anemia Patient Disposition: Admitted As Inpatient Condition: Fair Discharge Instructions Interventions: ED Discharge Assessment Last Done: 02/25/23 16:03
[2023-02-25 11:50] LABS: Basophils # (auto) 0.04 K/uL (0-0.2); Basophils % (auto) 0.5 %; Eosinophils % (auto) 2.6 %; Hematocrit (blood only) 32.8 % (42.0-52.0); Immature Granulocytes # (auto) 0.09 K/uL (0.01-0.20); Immature Granulocytes % (auto) 1.2 %; Lymphocytes # (auto) 2.08 K/uL (1.2-3.4); Lymphocytes % (auto) 27.4 %; Mean Corpuscular Hemoglobin 30.7 pg (25.0-34.0); Mean Corpuscular Hgb Conc 33.5 g/dL (32.0-36.0); Mean Corpuscular Volume 91.6 fL (80.0-100.0); Monocytes # (auto) 0.65 K/uL (0.11-0.59); Monocytes % (auto) 8.6 %; Neutrophils # (auto) 4.52 K/uL (1.40-6.50); Neutrophils % (auto) 59.7 %; Platelet Count 176 K/uL (130-400); RDW Coefficient of Variation 16.8 % (11.5-14.5); RDW Standard Deviation 56.6 fL (36.4-46.3); Red Blood Count 3.58 M/uL (4.70-6.10); White Blood Count 7.58 K/ul (4.8-10.8)
[2023-02-25 12:13] LABS: Albumin Globulin Ratio 1.2 (0.9-2); Albumin Level 3.5 gm/dl (3.4-5.0); BUN Creatinine Ratio 9.1 (10-20); Bilirubin,Total 0.4 mg/dl (0.2-1.0); Calcium 5.7 mg/dl (8.6-10.3); Est GFR (African American) 17.4 ml/min; Globulin 2.9 gm/dl (2.5-4.0); Magnesium 2.7 mg/dl (1.7-2.4); Phosphorus 5.6 mg/dl (2.5-4.9); Total Protein 6.4 gm/dl (6.0-8.3)
[2023-02-25] MEDS ORDERED: CALCIUM GLUCONATE 1,000 MG/60 ML BAG IV STA (12:28)
[2023-02-25 13:02] LABS: Appearance Urine Clear (Clear); Bacteria Urine Automated Negative (Negative); Bilirubin Urine Negative (Negative); Blood Urine 3+ (Negative); Color Urine Yellow; Glucose Urine UA Negative (Negative); Ketones Urine Negative (Negative); Leukocyte Esterase Urine Trace (Negative); Nitrite Urine Negative (Negative); Protein Urine Trace (Negative); RBC Urine Automated >30 /hpf (0-4); Specific Gravity Urine 1.008 (1.000-1.030); Urobilinogen Urine Negative (Negative)
--- NOTE | 2023-02-25 13:02 | History & Physical Report ---
Date of Service February 25, 2023 Assessment & Plan (1) Urinary retention: (2) Acute renal failure: (3) Bladder outlet obstruction: (4) BPH (benign prostatic hyperplasia): Plan: Severe chronic bladder outlet obstruction and obstructive uropathy with Acute renal Failure -MedSurg Alfaro has been placed in the ER with 2 L urine output on placement secondary to urinary retention -CT of the abdomen pelvis was not repeated secondary to recent scan completed on 02/18 and symptoms presented very similarly -Urine culture -Baseline creatinine is 0.9, upon leaving from the hospital on 02/20 his creatinine was 1.5 slightly increased from his baseline, today creatinine is 3.6 concerning for worsening acute renal failure in the setting of the above. -NSS IV ordered -Avoid nephrotoxic agents and renally reduce medications -Nephrology consult -Urology consult with needs for possible indwelling Alfaro-upon last admission patient left AMA secondary to Alfaro placement and insisted that it was discontinued, more education to be held regarding small leg bag may assist in p atient's compliance - UA with 3 + blood, trace esterase, RBC > 30, no nitrite and negative urine bacteria. Urine culture ordered (5) Non-small cell lung cancer: (6) Metastatic adenocarcinoma to bone: Plan: - Small cell lung carcinoma involving the right upper lobe with metastatic bony disease involving L2 in the right hip, currently on every 6-week Keytruda infusions, was due today but unable to have due to hypocalcemia -Follows with Dr. Mccray as outpatient -Follows with radiation oncology, unerwent XRT yesterday on 02/24/2023 - PT reports walking without pain or difficulty recently - likely that xrt is providing some relief of the osseous mets. -PT/OT consults (7) Hypocalcemia: Plan: - Calcium is 5.7, corrected is 6.1, ionized calcium 0.67, PTH was 490 on 02/18 last admission - consider repeat if per nephrology - Was administered calcium gluconate 1 g IV in the ER -Vitamin D was normal at 74.4 during last admission -Continue calcitriol -await recommendations per nephrology for IV calcium and calcium carbonate (8) Tobacco use disorder: Plan: - Chronic, stable - Pt smokes cigars which have no nicotine in them - he defers nicotine patch - was counselled on cessation as still has tar residue from inhalation, pt assumes the risk and prefers to continue smoking (9) AAA (abdominal aortic aneurysm): Plan: -Chronic, stable, does not want to pursue surgical intervention and understands risk DVT ppx: clara to CODE: DNR/DNI Dispo: From home, likely to remain in the hospital x 1-2 days A total of 76 minutes were spent with greater than 50% of that time face to face with the patient, personally reviewing all current laboratories, imaging studies, past medication reconciliation, outpatient chart review, and discussion with specialists to collaborate care for the patient with attending. Please see attending documentation for corrections and/or additions. History of Present Illness Chief Complaint: Urinary retention Primary Care Provider: Trey Mancuso MD This is a 77-year-old male with PMH of non-small cell lung cancer with metastasis to bone undergoing Keytruda treatment, drug-induced hypothyroidism, AAA without rupture, BPH. Patient was recently admitted from 02/18 to 02/20 for acute renal failure, urinary retention and BPH where a Alfaro catheter was placed replaced, patient did not want Alfaro to be continued and therefore left AMA. At that point time he was also found to have hypocalcemia with a calcium of 4.4, today his calcium is 5.5. and corrects to 6.1. Repeat imaging with CT was not done in the ER as this was just completed on 02/18 for same symptoms which include urinary retention with "dribbling" versus a steady stream like previously. Pt reports soaked 3 diapers overnight last night, and urinated about 1/2 C of urine this morning. Pt reports drinking 4-6 bottles of water per day, 2.5 cups of coffee and is eating well. Pt had radiation treatment yesterday and was unable to get it today. He was also supposed to have Keytruda infusion today but it was cancelled due to calcium levels. Pt walks at baseline by himself and gets up multiple times per day because he gets stiff otherwise. He smokes 0.5 ppd small cigars which reports have no nicotine in them, and has been using these for about 11 years. Prior to that he smoked cigarrettes up to 2 ppd. Therefore, declines a nicotine patch. Alfaro placed in the ER with 2 L out. Allergies Allergy/AdvReac Type Severity Reaction Status Date / Time No Known Allergies Allergy Unverified 02/18/23 13:23 Home Medications Medication Instructions Recorded Confirmed Type brimonidine 0.2 %-timolol 0.5 % 1 drp OPR BID 02/17/23 02/25/23 History eye drops dorzolamide (PF) 2 % (PF) eye drops 1 drp OPR TID 02/17/23 02/25/23 History gabapentin 100 mg capsule 100 mg PO HS 02/17/23 02/25/23 History latanoprost 0.005 % eye drops 1 drp OPR QPM 02/17/23 02/25/23 History (Xalatan) levothyroxine 75 mcg capsule 75 mcg PO DAILY 02/17/23 02/25/23 History sodium di- and 1 tab PO BID 02/17/23 02/25/23 History monophosphate-potassium phos monobasic 250 mg tablet (Phospho-Maxine Neutral) tamsulosin 0.4 mg capsule 0.4 mg PO HS 02/17/23 02/25/23 History calcium carbonate 200 mg calcium 1,500 mg PO TID #30 tabs 02/20/23 02/25/23 Rx (500 mg) chewable tablet (Tums) netarsudil 0.02 % eye drops 1 drp ophthalmic (eye) HS 02/25/23 02/25/23 History (Rhopressa) 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 Tobacco use disorder Surgical History H/O inguinal hernia repair History of bronchoscopy History of cataract surgery Family History Other Alzheimer disease Kidney disease Social History Smoking Status: Current every day smoker Tobacco Type: Cigarettes Age Started Using Tobacco: 28; Cigarettes Per Day: 10; Second Hand Exposure: Yes; Do You Dip or Chew Tobacco: No; Hx Alcohol Use: No Hx Substance Use: No Preferred Language: Citizen Of [place] Communication Ability: Effective Visual Impairment: Partially Limited Hearing Ability: Normal Cable Operator Required: No Beliefs That Will Affect Care: None marital status: / Current Living Situation: Alone Current Living Situation Comment: Lives alone with 2 dogs current occupational status: retired 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, 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 Feels Safe at Home: Yes Diet: regular during the past year weight has: remained stable Assistive Devices: Cane, Denture - Upper, Denture - Lower and Glasses Review of Systems Review of Systems: Constitutional: No fever, sweats, + chills Eyes: No diplopia, no worsening or blurred vision ENT: normal hearing, no trouble swallowing Respiratory: No cough, sputum, dyspnea at rest or on exertion Cardiovascular: No chest pain, tightness or palpitations Abdomen: No pain, nausea, vomiting, diarrhea or constipation : as per HPI Musculoskeletal: No joint pain, calf pain, swelling Neurologic: No weakness, numbness/tingling, or balance problems Psychiatric: No anxiety or depression Skin: No rash or itch Physical Exam Physical Exam: General: awake, alert, no apparent distress, Elderly white male, smells of smoke Head: Normocephalic, atraumatic ENT: PERRL, EOMI, , eyelid droop of the right eye, no pharyngeal exudate, mucous membranes moist Chest: Clear to auscultation, on room air, no adventitious breath sounds Cardiac: Regular rate and rhythm, no murmur, no JVD, normal peripheral pulses, good capillary refill Abdominal: NABS x 4 quadrants, soft, nondistended, nontender to palpation, no rebound or guarding : Alfaro in place draining clear yellow urine Extremities: Normal inspection, 2+pitting peripheral edema up to knees bilaterally, no erythema, calfs nontender to palpation Psych: Normal mood and affect Neuro: AAO x 3, strength intact bilaterally and rated 5/5, no motor deficits, speech is clear, no peripheral sensory deficits Results & Data Results & Data Vital Signs (Past 12 Hours) Vital Signs Temp Pulse Pulse Resp BP BP Pulse Ox 02/25/23 12:18 71 02/25/23 11:46 72 18 117/60 95 02/25/23 11:45 95 02/25/23 11:11 36.8 C 82 16 113/69 96 O2 Del Method 02/25/23 12:18 02/25/23 11:46 Room Air 02/25/23 11:45 Room Air 02/25/23 11:11 Room Air Laboratory Results 02/25/23 02/25/23 02/25/23 12:16 11:54 11:34 WBC RBC Hgb Hct MCV MCH MCHC RDW Std Deviation RDW Coeff of Madeleine Plt Count MPV Immature Gran % (Auto) Neut % (Auto) Lymph % (Auto) [place] % (Auto) Eos % (Auto) Baso % (Auto) Neut # (Auto) Lymph # (Auto) [place] # (Auto) Eos # (Auto) Baso # (Auto) Immature Gran # (Auto) Sodium 137 Potassium 4.0 Chloride 104 Carbon Dioxide 23 Anion Gap 10 BUN 33 H Creatinine 3.63 H Est Cr Clr Drug Dosing 16.0 Est GFR ( Amer) 17.4 Est GFR (Non-Af Amer) 15.0 BUN/Creatinine Ratio 9.1 L Glucose 108 H Calcium 5.7 L* Ionized Calcium 0.67 L* Phosphorus 5.6 H Magnesium 2.7 H Total Bilirubin 0.4 AST 20 ALT 7 Alkaline Phosphatase 237 H Total Creatine Kinase 138 Troponin I High Sens 10.0 Total Protein 6.4 Albumin 3.5 Globulin 2.9 Albumin/Globulin Ratio 1.2 Urine Color Yellow Urine Appearance Clear Urine pH 7.0 Ur Specific [place] 1.008 Urine Protein Trace H Urine Glucose (UA) Negative Urine Ketones Negative Urine Blood 3+ H Urine Nitrite Negative Urine Bilirubin Negative Urine Urobilinogen Negative Ur Leukocyte Esterase Trace H Urine WBC (Auto) 1-5 Urine RBC (Auto) >30 H U Hyaline Cast (Auto) 1-5 U Epithel Cells (Auto) 5-10 H Urine Bacteria (Auto) Negative 02/25/23 11:34 WBC 7.58 RBC 3.58 L Hgb 11.0 L Hct 32.8 L MCV 91.6 MCH 30.7 MCHC 33.5 RDW Std Deviation 56.6 H RDW Coeff of Madeleine 16.8 H Plt Count 176 MPV 10.0 Immature Gran % (Auto) 1.2 Neut % (Auto) 59.7 Lymph % (Auto) 27.4 [place] % (Auto) 8.6 Eos % (Auto) 2.6 Baso % (Auto) 0.5 Neut # (Auto) 4.52 Lymph # (Auto) 2.08 [place] # (Auto) 0.65 H Eos # (Auto) 0.20 Baso # (Auto) 0.04 Immature Gran # (Auto) 0.09 Sodium Potassium Chloride Carbon Dioxide Anion Gap BUN Creatinine Est Cr Clr Drug Dosing Est GFR ( Amer) Est GFR (Non-Af Amer) BUN/Creatinine Ratio Glucose Calcium Ionized Calcium Phosphorus Magnesium Total Bilirubin AST ALT Alkaline Phosphatase Total Creatine Kinase Troponin I High Sens Total Protein Albumin Globulin Albumin/Globulin Ratio Urine Color Urine Appearance Urine pH Ur Specific [place] Urine Protein Urine Glucose (UA) Urine Ketones Urine Blood Urine Nitrite Urine Bilirubin Urine Urobilinogen Ur Leukocyte Esterase Urine WBC (Auto) Urine RBC (Auto) U Hyaline Cast (Auto) U Epithel Cells (Auto) Urine Bacteria (Auto) Code Status & VTE Plan Code Status DNR/DNI -discussed with the pt at bedside Supervising Physician Co-Signing Physician Notes I have seen and examined the patient and have discussed the case with the provider above. I agree with the assessment and plan as stated with the following exceptions. 77 yo M with known lung cancer with mets to bone presents with acute renal failure 2/2 acute urinary retention. He reports not having felt any symptoms but was referred here because of abnormal labwork. He was recently admitted with urinary retention 02/18 and was seen by Urology who recommended alfaro catheter, but patient declined and left AMA on 02/20. He denies any other significant pain as noted above. He has a noted severe hypocalcemia last admission and was asymptomatic. At that time, he was seen by nephrology who recommended continuing calcitriol 1mcg PO QID, calcium infusion 1gram IV q6h and calcium carbonate 1500mg PO TID with measured ionized calcium q12hrs. This was felt to be related to secondary hyperparathyroidism. When he left he was given the calcium supplementation but is not on calcitriol as he left against medical advice, and has not been able to follow-up with nephrology in the interim. A alfaro was placed today and on initial workup, he doesnt appear to have infected urine. Todays creatinine is up to 3.63 with a normal baseline creatinine (0.8) as of December 2022. Initial alfaro output was up to 2L. On exam he has cold intolerance but is in NAD, mentating clearly. Cardiopulmonary exam unremarkable aside from minor crackles at the bases of lung bilaterally. He can sit up independently, and abdomen is soft, NTND with alfaro in place. Acute renal failure 2/2 acute urinary retention in setting of known bladder outlet obstruction from BPH. Cont with alfaro for at least one week and TOV in urology office. Cont monitoring lytes and hydration status in setting of post- obstructive diuresis. He still has a low calcium like last admission 2/2 secondary hyperparathyroidism. Nephrology consulted. Cont CaCO3 supplementation and Calcium gluconate infusion 1gram IV q6h. Monitor ionized calcium twice daily. Monitor BMP in am. Oncologic care per Dr. Mccray. DO Solomon (2) Acute renal failure Acute renal failure type: unspecified Qualified Code(s): N17.9 - Acute kidney failure, unspecified (5) Non-small cell lung cancer Laterality: unspecified laterality Qualified Code(s): C34.90 - Malignant neoplasm of unspecified part of unspecified bronchus or lung (9) AAA (abdominal aortic aneurysm) Abdominal aorta location: unspecified Presence of rupture: without rupture Qualified Code(s): I71.40 - Abdominal aortic aneurysm, without rupture, unspecified
[2023-02-25] MEDS ORDERED: ACETAMINOPHEN 325 MG TAB PO STA (13:26)
--- NOTE | 2023-02-25 14:06 | Urology Consultation ---
Date of Consultation February 25, 2023 Assessment & Plan (1) Acute urinary retention: (2) Acute renal failure: 77-year-old male with admitted for acute urinary retention, acute renal failure and hypocalcemia. Patient is afebrile with stable vitals Labs reviewedcreatinine 3.63, WBC 7.58, hemoglobin 11.0 Continue to trend labs and monitor for post obstructive diuresis CT imaging from previous imaging notable for moderate bilateral hydro, right > left Urinalysis was not suspicious for infection Wadsworth catheter patent and draining Recommend maintain Wadsworth catheter for at least 7-14 days/until urology follow-up No acute intervention at this time Continue Tamsulosin Reviewed and discussed recommendations with patient and daughter He is agreeable to maintain catheter and follow-up with urology service Will arrange outpatient f/u with our service for further management History of Present Illness Reason for Consultation: Urinary retention, ARF, BPH History of Present Illness This is a 77-year-old male with metastatic small cell lung cancer on Keytruda who was referred to the emergency department for abnormal lab work. On arrival to ED, he was afebrile and hemodynamically stable. Lab work showed a creatinine of 3.63, WBC 7.53, hemoglobin 11.0. Urinalysis showed trace protein, 3+ blood, trace leukocyte esterase, >30 RBC, 5-10 epithelial cells, negative for bacteria. Wadsworth catheter placed with 2 L immediately returned. He was admitted for acute urinary retention, acute renal failure and hypocalcemia. He was recently hospitalized 02/18 -02/20 for acute urinary retention and renal failure. His creatinine was 5.91 on 02/18 and trended down to 1.54. Urology was consulted last admission for urinary retention and hematuria. Recommendation to keep catheter. Patient left AMA on 02/20 and Wadsworth was discontinued prior to leaving the hospital. CTAP on 02/18 was notable for moderate bilateral hydroureteronephrosis, right greater than left; the ureters are dilated to level of the bladder and no obstructing stone or lesion is seen. The bladder is largely decompressed around a Wadsworth catheter. The wall is thickened and irregular and there is pericystic infiltration. Patient seen and examined in the emergency department. He is awake and resting in bed, in no apparent distress. Daughter at bedside. He denies flank, abdominal or suprapubic discomfort. Tolerating Wadsworth catheter. Wadsworth patent and draining clear light tea colored urine. Denies nausea, vomiting, fever or chills. Reports he has been leaking urine overnight, voiding small amounts. No dysuria. He is on tamsulosin. No family hx of malignancy. Allergies Allergy/AdvReac Type Severity Reaction Status Date / Time No Known Allergies Allergy Unverified 02/18/23 13:23 Home Medications Medication Instructions Recorded Confirmed Type brimonidine 0.2 %-timolol 0.5 % 1 drp OPR BID 02/17/23 02/25/23 History eye drops dorzolamide (PF) 2 % (PF) eye drops 1 drp OPR TID 02/17/23 02/25/23 History gabapentin 100 mg capsule 100 mg PO HS 02/17/23 02/25/23 History latanoprost 0.005 % eye drops 1 drp OPR QPM 02/17/23 02/25/23 History (Xalatan) levothyroxine 75 mcg capsule 75 mcg PO DAILY 02/17/23 02/25/23 History sodium di- and 1 tab PO BID 02/17/23 02/25/23 History monophosphate-potassium phos monobasic 250 mg tablet (Phospho-Maxine Neutral) tamsulosin 0.4 mg capsule 0.4 mg PO HS 02/17/23 02/25/23 History calcium carbonate 200 mg calcium 1,500 mg PO TID #30 tabs 02/20/23 02/25/23 Rx (500 mg) chewable tablet (Tums) netarsudil 0.02 % eye drops 1 drp ophthalmic (eye) HS 02/25/23 02/25/23 History (Rhopressa) Patient History Medical History Basal cell carcinoma nose and scalp BPH (benign prostatic hyperplasia) 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 Cataracts, bilateral 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 Non-small cell lung cancer 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 Tobacco use disorder Surgical History H/O inguinal hernia repair History of bronchoscopy History of cataract surgery Family History Other Alzheimer disease Kidney disease Social History Smoking Status: Former smoker Tobacco Type: Cigarettes Age Started Using Tobacco: 28; Cigarettes Per Day: 1/2-1 pack per day; Second Hand Exposure: Yes; Do You Dip or Chew Tobacco: No; Hx Alcohol Use: No Hx Substance Use: No Preferred Language: [place] Communication Ability: Effective Visual Impairment: Partially Limited Hearing Ability: Normal Parcel Post Clerk Required: No Beliefs That Will Affect Care: None marital status: / Current Living Situation: Alone current occupational status: retired 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[employer], 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 Feels Safe at Home: Yes Diet: regular during the past year weight has: remained stable Assistive Devices: Cane Review of Systems Review of Systems: All systems reviewed & are unremarkable except as noted in HPI & below Physical Exam Physical Exam: General: well-appearing, no acute distress HEENT: Normocephalic Pulmonary: Nonlabored respirations CV: mild bilateral lower extremity edema Abdomen: soft, nontender Extremities: Moves all 4 spontaneously Neuro: No gross deficits Psych: alert and oriented, normal mood Skin: Warm, dry, no visible rashes noted : Wadsworth patent and draining clear light tea colored urine Results & Data Vital Signs (Past 12 Hours) Vital Signs Temp Pulse Pulse Resp BP BP Pulse Ox 02/25/23 13:48 67 18 123/69 96 02/25/23 12:18 71 02/25/23 11:46 72 18 117/60 95 02/25/23 11:45 95 02/25/23 11:11 36.8 C 82 16 113/69 96 O2 Del Method 02/25/23 13:48 Room Air 02/25/23 12:18 02/25/23 11:46 Room Air 02/25/23 11:45 Room Air 02/25/23 11:11 Room Air PG Care Time/CCT Total # of Minutes Spent Total Time Spent with Patient: Total time spent is greater than 50% in coordination of care (as documented) at patient's floor/unit and/or counseling patient: Coding Level of Care Code 13685 INT INP/OBS CARE 2/55MIN Diagnoses Acute urinary retention R33.8 Acute renal failure N17.9 Acute renal failure type: unspecified (2) Acute renal failure Acute renal failure type: unspecified Qualified Code(s): N17.9 - Acute kidney failure, unspecified
[2023-02-25] MEDS ORDERED: ONDANSETRON INJ 2 MG/ML 2 ML VIAL IV PRN (16:04)
[2023-02-25] MEDS ORDERED: STAT IV STA (17:11)
[2023-02-25] MEDS: CALCIUM CARBONATE 500 MG CHEWABLE TAB PO SCH ×2 (17:13→20:05)
[2023-02-25] MEDS ORDERED: SODIUM CHLORIDE 0.45 % 1,000 ML IV SCH (17:15)
[2023-02-25] MEDS: CALCIUM GLUCONATE 10% 1,000 MG in DEXTROSE 5% 50 ML IV SCH ×2 (18:00→22:59)
[2023-02-25] MEDS: POT PHOSPHATE MONOBASIC W/ SOD TAB PO SCH (20:05)
[2023-02-25] MEDS: TAMSULOSIN HCL 0.4 MG CAP PO SCH (20:05)
[2023-02-25] MEDS: LATANOPROST 0.005% OP SOLN 2.5 ML BTL OPR SCH (20:05)
[2023-02-25] MEDS: GABAPENTIN 100 MG CAP PO SCH (20:05)
[2023-02-25] MEDS: DORZOLAMIDE HCL 2% OPH SOLN 10 ML BTL OPR SCH (20:12)
[2023-02-25] MEDS: CALCITRIOL 0.25 MCG CAPSULE PO SCH (20:12)
--- NOTE | 2023-02-26 00:24 | Electrocardiogram Report ---
Test Reason : Blood Pressure : / mmHG Vent. Rate : 071 BPM Atrial Rate : 071 BPM P-R Int : 184 ms QRS Dur : 136 ms QT Int : 462 ms P-R-T Axes : 044 -49 001 degrees QTc Int : 502 ms Normal sinus rhythm Right bundle branch block Left anterior fascicular block Bifascicular block Abnormal ECG When compared with ECG of 19-FEB-2023 05:07, No significant change was found Confirmed by Pj Freeman ([id number]) on 02/26/2023 12:24:10 AM Referred By: Confirmed By:Pj Fremean
[2023-02-26] MEDS: CALCIUM GLUCONATE 10% 1,000 MG in DEXTROSE 5% 50 ML IV SCH ×2 (05:46→11:26)
[2023-02-26] MEDS: LEVOTHYROXINE SODIUM 75 MCG TABLET PO SCH (05:46)
[2023-02-26 07:03] LABS: Hematocrit (blood only) 30.3 % (42.0-52.0); Hemoglobin 10.1 g/dl (14.0-18.0); Mean Corpuscular Hemoglobin 30.6 pg (25.0-34.0); Mean Corpuscular Hgb Conc 33.3 g/dL (32.0-36.0); Mean Corpuscular Volume 91.8 fL (80.0-100.0); Mean Platelet Volume 9.8 fL (9.4-12.4); Platelet Count 167 K/uL (130-400); RDW Coefficient of Variation 16.4 % (11.5-14.5); RDW Standard Deviation 54.8 fL (36.4-46.3)
[2023-02-26 07:33] LABS: Albumin Globulin Ratio 1.2 (0.9-2); Albumin Level 2.9 gm/dl (3.4-5.0); BUN Creatinine Ratio 11.9 (10-20); Bilirubin,Total 0.4 mg/dl (0.2-1.0); Calcium 6.6 mg/dl (8.6-10.3); Creatinine Clr Calc Pharmacy 36.4 ml/min; Est GFR (African American) 47.2 ml/min; Est GFR (Non-African American) 40.7 ml/min; Globulin 2.4 gm/dl (2.5-4.0); Magnesium 2.3 mg/dl (1.7-2.4); Phosphorus 3.1 mg/dl (2.5-4.9); Potassium 3.4 mmol/L (3.5-5.1); Total Protein 5.3 gm/dl (6.0-8.3)
[2023-02-26] MEDS: CALCIUM CARBONATE 500 MG CHEWABLE TAB PO SCH ×3 (08:40→20:55)
[2023-02-26] MEDS: DORZOLAMIDE HCL 2% OPH SOLN 10 ML BTL OPR SCH ×3 (08:40→20:58)
[2023-02-26] MEDS: POT PHOSPHATE MONOBASIC W/ SOD TAB PO SCH (08:40)
[2023-02-26] MEDS: CALCITRIOL 0.25 MCG CAPSULE PO SCH ×2 (08:40→12:05)
--- NOTE | 2023-02-26 10:10 | Urology Progress Note ---
Date of Service February 26, 2023 Assessment & Plan (1) CHAUNCEY (acute kidney injury): (2) Acute urinary retention: Plan: CHAUNCEY; urinary retention; bilateral hydronephrosis Drastic improvement after catheterization Plan to leave the catheter in place with from a standpoint Okay for discharge home when deemed medically stableshe has not exhibited signs of postobstructive diuresis so I believe he will not require additional electrolyte supplementation, etc. (slight drop in his K today) High surgical risk but may benefit from REZUM in the futurethis would be our least invasive surgical option, however his large aneurysm still poses substantial risk He could also continue to live with the catheter as it does not seem to be bothering him currently Please call if further issues during this hospitalization Admission and Anticipated Discharge Date Admission Date: February 25, 2023 Subjective Subjectively feeling very well Excellent urine output overnightnearly 8 L Tolerating his catheter wellno significant discomfort Drastic improvement in his creatinine of 3.6-1.59 Anxious to go home He did have a discussion today about his large aortic aneurysm and iliac aneurysms He has previously consulted with vascular surgery and has elected observation rather than surgical intervention I did discuss that he may have an option for surgical intervention for his prostate to resolve his chronic urinary retention, however, his aneurysms do pose a bit of a challenge as they certainly increase his surgical risks I have discussed that we can further debate the pros and cons of this intervention in the future as an outpatient For the time being he certainly should keep his catheter Physical Exam Physical Exam: Urine clear Abdomen soft Results & Data Vital Signs (Past 12 Hours) Vital Signs Temp Pulse Resp BP Pulse Ox O2 Del Method 02/26/23 07:10 37.2 C 75 18 101/52 L 94 Room Air PG Care Time/CCT Total # of Minutes Spent Total Time Spent with Patient: Total time spent is greater than 50% in coordination of care (as documented) at patient's floor/unit and/or counseling patient: Coding Level of Care Code 36143 SUB INP/OBS CARE 2/35MIN Diagnoses CHAUNCEY (acute kidney injury) N17.9 Acute urinary retention R33.8
--- NOTE | 2023-02-26 10:37 | Nephrology Consultation ---
Date of Consultation February 26, 2023 Assessment & Plan (1) CHAUNCEY (acute kidney injury): Patient with acute kidney injury likely due to obstructive uropathy. Admission creatinine of 3.6. Wadsworth catheter was placed and creatinine is down to 1.6 today. He is making urine. Potassium is slightly low. Urology has recommended continuing Wadsworth catheter until 7 to 10 days postdischarge. Patient will need urology and nephrology follow-up outpatient. -Potassium chloride 40 mEq one-time today -plasmalyte at 80ml/hr (2) Hypocalcemia: Likely in setting of recent denosumab use. 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 Patient was recently admitted from 02/18 to 02/20 for acute renal failure, urinary retention and BPH where a Wadsworth catheter was placed replaced, patient did not want Wadsworth to be continued and therefore left AMA. At that point time he was also found to have hypocalcemia with a calcium of 4.4, today his calcium is 5.5. and corrects to 6.1. Patient received denosumab in 2022. Patient now returns with inability to pee. He was again found to have obstructive uropathy. Wadsworth catheter was placed. Admission creatinine was 3.6 but down to 1.6 today. Patient came in with severe hypocalcemia of 5.7 but has improved to 6.6 today with supplementation. He feels better today denies any shortness of breath nausea or vomiting. He is interested in going home. Allergies Allergy/AdvReac Type Severity Reaction Status Date / Time No Known Allergies Allergy Unverified 02/18/23 13:23 Home Medications Medication Instructions Recorded Confirmed Type brimonidine 0.2 %-timolol 0.5 % 1 drp OPR BID 02/17/23 02/25/23 History eye drops dorzolamide (PF) 2 % (PF) eye drops 1 drp OPR TID 02/17/23 02/25/23 History gabapentin 100 mg capsule 100 mg PO HS 02/17/23 02/25/23 History latanoprost 0.005 % eye drops 1 drp OPR QPM 02/17/23 02/25/23 History (Xalatan) levothyroxine 75 mcg capsule 75 mcg PO DAILY 02/17/23 02/25/23 History sodium di- and 1 tab PO BID 02/17/23 02/25/23 History monophosphate-potassium phos monobasic 250 mg tablet (Phospho-Maxine Neutral) tamsulosin 0.4 mg capsule 0.4 mg PO HS 02/17/23 02/25/23 History calcium carbonate 200 mg calcium 1,500 mg PO TID #30 tabs 02/20/23 02/25/23 Rx (500 mg) chewable tablet (Tums) netarsudil 0.02 % eye drops 1 drp ophthalmic (eye) HS 02/25/23 02/25/23 History (Rhopressa) Patient History Medical History Basal cell carcinoma nose and scalp BPH (benign prostatic hyperplasia) 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 Cataracts, bilateral 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 Non-small cell lung cancer 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 Tobacco use disorder Surgical History H/O inguinal hernia repair History of bronchoscopy History of cataract surgery Family History Other Alzheimer disease Kidney disease Social History Smoking Status: Current every day smoker Tobacco Type: Cigarettes Age Started Using Tobacco: 28; Cigarettes Per Day: 10; Second Hand Exposure: Yes; Do You Dip or Chew Tobacco: No; Hx Alcohol Use: No Hx Substance Use: No Preferred Language: Puerto Rican Communication Ability: Effective Visual Impairment: Partially Limited Hearing Ability: Normal 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 Required: No Beliefs That Will Affect Care: None marital status: / Current Living Situation: Alone Current Living Situation Comment: Lives alone with 2 dogs current occupational status: retired 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 Gastrointestinal: Abdomen is soft, non distended, non tender, bowel sounds are present CVS: Regular rate and rhythm. No murmurs, rubs or gallops Musculoskeletal: No joint or muscle tenderness Extremities: Non tender, no edema, peripheral pulses are present Neuro: Oriented, no tremors, no focal neurological deficits Skin: No rashes Results & Data Vital Signs (Past 12 Hours) Vital Signs Temp Pulse Resp BP Pulse Ox O2 Del Method 02/26/23 07:10 37.2 C 75 18 101/52 L 94 Room Air Laboratory Results 02/26/23 06:36 02/25/23 02/25/23 02/26/23 11:34 11:34 06:36 WBC 7.58 7.10 RBC 3.58 L 3.30 L MCV 91.6 91.8 MCH 30.7 30.6 MCHC 33.5 33.3 RDW Std Deviation 56.6 H 54.8 H RDW Coeff of Madeleine 16.8 H 16.4 H Plt Count 176 167 MPV 10.0 9.8 Phosphorus 5.6 H Albumin 3.5 02/26/23 06:36 WBC RBC MCV MCH MCHC RDW Std Deviation RDW Coeff of Madeleine Plt Count MPV Phosphorus 3.1 D Albumin 2.9 L
[2023-02-26] MEDS ORDERED: POTASSIUM CHLORIDE 20 MEQ/15 ML UDC PO STA (10:39)
--- NOTE | 2023-02-26 12:32 | Hospitalist Progress Note ---
Date of Service February 26, 2023 Assessment & Plan (1) Urinary retention: (2) Acute renal failure: (3) Bladder outlet obstruction: (4) BPH (benign prostatic hyperplasia): Plan: Recent admission with bladder outlet obstruction from 02/18 to 02/20. Signed out AMA without Wadsworth catheter. Presents with CHAUNCEY. Status post Wadsworth placement. Labs reviewed from today; creatinine downtrending. Urology on board; recommend continued Wadsworth for at least 7 to [address] Hylton from nephrology; recommend Plasma-Lyte at 80 cc/h. (5) Non-small cell lung cancer: (6) Metastatic adenocarcinoma to bone: Plan: - Small cell lung carcinoma involving the right upper lobe with metastatic bony disease involving L2 in the right hip, currently on every 6-week Keytruda infusions, was due today but unable to have due to hypocalcemia -Follows with Dr. Mccray as outpatient -Follows with radiation oncology, unerwent XRT yesterday on 02/24/2023 - PT reports walking without pain or difficulty recently - likely that xrt is providing some relief of the osseous mets. -PT/OT eval (7) Hypocalcemia: Plan: Hypocalcemia likely due to denosumab. Last dose was January 14/2023. Likely exacerbated by CHAUNCEY Calcium improved to 6.6. PTH was 490 on 02/18 last admission Nephrology consulted; calcium carbonate 1500 MG 3 times daily along with calcitriol 0.5 mcg. Likely need to uptitrate calcitriol based on repeat calcium level. (8) Tobacco use disorder: Plan: - Chronic, stable - Pt smokes cigars which have no nicotine in them - he defers nicotine patch - was counselled on cessation as still has tar residue from inhalation, pt assumes the risk and prefers to continue smoking (9) AAA (abdominal aortic aneurysm): Plan: -Chronic, stable, does not want to pursue surgical intervention and understands risk DVT ppx: teds, scds CODE: DNR/DNI Dispo: From home, Discussed with his son at bedside. Answered questions/queries. Time spent evaluating patient, direct bedside care, chart review, placing orders, interpretation of diagnostic studies, discussion with consultants, patient, and family members, as well as other required patient management activities is 60 minutes. Please note the above document was generated using voice recognition software. It may contain grammatical, syntax or spelling errors. Any formal questions or concerns about the content, text or information contained within the body of this dictation should be directly addressed to the provider for clarification Admission and Anticipated Discharge Date Admission Date: February 25, 2023 Subjective Patient seen and examined at bedside. Lying on the bed comfortably; not in distress. No complaint of fever, chills, chest pain, shortness of breath or abdominal pain. Urine output of 7 L since admission. Review of Systems Review of Systems: All systems reviewed & are unremarkable except as noted in Subjective Physical Exam Physical Exam: Constitutional: WD/WN, vitals as above, NAD, sitting up in bed, pleasant, conversing easily Respiratory: normal respiratory effort, lungs clear to auscultation, no wheeze, rales, rhonchi. Normal insp/exp effort, no accessory muscle use Cardiovascular: RRR, no murmur, no edema Vessels: no JVD or carotid bruit Chest: normal inspection of chest Abdomen: normal bowel sounds, soft, nontender, no hepatosplenomegaly. Wadsworth in place draining clear urine. Musculoskeletal: no cyanosis or clubbing, extremities motor strength 5/5 Skin: no rashes, warm and dry normal turgor Neurologic: PERRL, EOMI, accommodation nl, no face palsy, no dysarthria CN's II- XI intact bilaterally and moves all extremities Psychiatric: A+Ox3, euthymic affect Results & Data Results & Data Vital Signs (Past 12 Hours) Vital Signs Temp Pulse Resp BP Pulse Ox O2 Del Method 02/26/23 07:10 37.2 C 75 18 101/52 L 94 Room Air Laboratory Results Laboratory Results WBC 7.10 K/ul (4.8-10.8) 02/26/23 06:36 RBC 3.30 M/uL (4.70-6.10) L 02/26/23 06:36 Hgb 10.1 g/dl (14.0-18.0) L 02/26/23 06:36 Hct 30.3 % (42.0-52.0) L 02/26/23 06:36 MCV 91.8 fL (80.0-100.0) 02/26/23 06:36 MCH 30.6 pg (25.0-34.0) 02/26/23 06:36 MCHC 33.3 g/dL (32.0-36.0) 02/26/23 06:36 RDW Std Deviation 54.8 fL (36.4-46.3) H 02/26/23 06:36 RDW Coeff of Madeleine 16.4 % (11.5-14.5) H 02/26/23 06:36 Plt Count 167 K/uL (130-400) 02/26/23 06:36 MPV 9.8 fL (9.4-12.4) 02/26/23 06:36 Immature Gran % (Auto) 1.2 % 02/25/23 11:34 Neut % (Auto) 59.7 % 02/25/23 11:34 Lymph % (Auto) 27.4 % 02/25/23 11:34 Mccracken % (Auto) 8.6 % 02/25/23 11:34 Eos % (Auto) 2.6 % 02/25/23 11:34 Baso % (Auto) 0.5 % 02/25/23 11:34 Neut # (Auto) 4.52 K/uL (1.40-6.50) 02/25/23 11:34 Lymph # (Auto) 2.08 K/uL (1.2-3.4) 02/25/23 11:34 Mccracken # (Auto) 0.65 K/uL (0.11-0.59) H 02/25/23 11:34 Eos # (Auto) 0.20 K/uL (0-0.50) 02/25/23 11:34 Baso # (Auto) 0.04 K/uL (0-0.2) 02/25/23 11:34 Immature Gran # (Auto) 0.09 K/uL (0.01-0.20) 02/25/23 11:34 Sodium 138 mmol/L (136-145) 02/26/23 06:36 Potassium 3.4 mmol/L (3.5-5.1) L 02/26/23 06:36 Chloride 109 mmol/L (98-107) H 02/26/23 06:36 Carbon Dioxide 22 mmol/L (21-32) 02/26/23 06:36 Anion Gap 7 (3-11) 02/26/23 06:36 BUN 19 mg/dl (6-23) 02/26/23 06:36 Creatinine 1.59 mg/dl (0.6-1.4) H D 02/26/23 06:36 Est Cr Clr Drug Dosing 36.4 ml/min 02/26/23 06:36 Est GFR ( Amer) 47.2 ml/min 02/26/23 06:36 Est GFR (Non-Af Amer) 40.7 ml/min 02/26/23 06:36 BUN/Creatinine Ratio 11.9 (10-20) 02/26/23 06:36 Glucose 92 mg/dl (70-99(Fasting)) 02/26/23 06:36 Calcium 6.6 mg/dl (8.6-10.3) L 02/26/23 06:36 Ionized Calcium 0.89 mmol/L (1.12-1.32) L 02/26/23 06:36 Phosphorus 3.1 mg/dl (2.5-4.9) D 02/26/23 06:36 Magnesium 2.3 mg/dl (1.7-2.4) 02/26/23 06:36 Total Bilirubin 0.4 mg/dl (0.2-1.0) 02/26/23 06:36 AST 14 U/L (13-39) 02/26/23 06:36 ALT 5 U/L (7-52) L 02/26/23 06:36 Alkaline Phosphatase 186 U/L (34-104) H 02/26/23 06:36 Total Creatine Kinase 138 U/L (30-223) 02/25/23 11:34 Troponin I High Sens 10.0 pg/ml (0-20) 02/25/23 11:34 Total Protein 5.3 gm/dl (6.0-8.3) L 02/26/23 06:36 Albumin 2.9 gm/dl (3.4-5.0) L 02/26/23 06:36 Globulin 2.4 gm/dl (2.5-4.0) L 02/26/23 06:36 Albumin/Globulin Ratio 1.2 (0.9-2) 02/26/23 06:36 Urine Color Yellow 02/25/23 11:54 Urine Appearance Clear (Clear) 02/25/23 11:54 Urine pH 7.0 (4.5-7.5) 02/25/23 11:54 Ur Specific [place] 1.008 (1.000-1.030) 02/25/23 11:54 Urine Protein Trace (Negative) H 02/25/23 11:54 Urine Glucose (UA) Negative (Negative) 02/25/23 11:54 Urine Ketones Negative (Negative) 02/25/23 11:54 Urine Blood 3+ (Negative) H 02/25/23 11:54 Urine Nitrite Negative (Negative) 02/25/23 11:54 Urine Bilirubin Negative (Negative) 02/25/23 11:54 Urine Urobilinogen Negative (Negative) 02/25/23 11:54 Ur Leukocyte Esterase Trace (Negative) H 02/25/23 11:54 Urine WBC (Auto) 1-5 /hpf (0-5) 02/25/23 11:54 Urine RBC (Auto) >30 /hpf (0-4) H 02/25/23 11:54 U Hyaline Cast (Auto) 1-5 /lpf (0-5) 02/25/23 11:54 U Epithel Cells (Auto) 5-10 /lpf (0-5) H 02/25/23 11:54 Urine Bacteria (Auto) Negative (Negative) 02/25/23 11:54 (2) Acute renal failure Acute renal failure type: unspecified Qualified Code(s): N17.9 - Acute kidney failure, unspecified (5) Non-small cell lung cancer Laterality: unspecified laterality Qualified Code(s): C34.90 - Malignant neoplasm of unspecified part of unspecified bronchus or lung (9) AAA (abdominal aortic aneurysm) Abdominal aorta location: unspecified Presence of rupture: without rupture Qualified Code(s): I71.40 - Abdominal aortic aneurysm, without rupture, unspecified
[2023-02-26] MEDS: PLASMA-LYTE A 1,000 ML IV SCH (12:34)
[2023-02-26] MEDS: ACETAMINOPHEN 325 MG TAB PO PRN (19:28)
[2023-02-26] MEDS: GABAPENTIN 100 MG CAP PO SCH (20:55)
[2023-02-26] MEDS: TAMSULOSIN HCL 0.4 MG CAP PO SCH (20:56)
[2023-02-26] MEDS: LATANOPROST 0.005% OP SOLN 2.5 ML BTL OPR SCH (20:57)
[2023-02-26] MEDS: BRIMONIDINE TARTRATE 0.2% 5ML OPR SCH (20:58)
[2023-02-26] MEDS: TIMOLOL MALEATE 0.5% OP SOLN 5 ML BTL OPR SCH (20:59)
[2023-02-27] MEDS: PLASMA-LYTE A 1,000 ML IV SCH (01:05)
[2023-02-27] MEDS: LEVOTHYROXINE SODIUM 75 MCG TABLET PO SCH (06:21)
[2023-02-27 06:39] LABS: Basophils # (auto) 0.03 K/uL (0-0.2); Basophils % (auto) 0.4 %; Eosinophils # (auto) 0.21 K/uL (0-0.50); Hematocrit (blood only) 30.8 % (42.0-52.0); Hemoglobin 10.3 g/dl (14.0-18.0); Immature Granulocytes % (auto) 1.4 %; Lymphocytes # (auto) 2.32 K/uL (1.2-3.4); Lymphocytes % (auto) 32.9 %; Mean Corpuscular Hemoglobin 30.6 pg (25.0-34.0); Mean Corpuscular Hgb Conc 33.4 g/dL (32.0-36.0); Mean Corpuscular Volume 91.4 fL (80.0-100.0); Mean Platelet Volume 9.4 fL (9.4-12.4); Monocytes # (auto) 0.72 K/uL (0.11-0.59); Monocytes % (auto) 10.2 %; Neutrophils # (auto) 3.68 K/uL (1.40-6.50); Neutrophils % (auto) 52.1 %; Platelet Count 165 K/uL (130-400); RDW Coefficient of Variation 16.5 % (11.5-14.5); RDW Standard Deviation 54.9 fL (36.4-46.3); Red Blood Count 3.37 M/uL (4.70-6.10); White Blood Count 7.06 K/ul (4.8-10.8)
[2023-02-27 07:13] LABS: Albumin Globulin Ratio 1.2 (0.9-2); Albumin Level 2.9 gm/dl (3.4-5.0); BUN Creatinine Ratio 11.8 (10-20); Bilirubin,Total 0.4 mg/dl (0.2-1.0); Calcium 7.1 mg/dl (8.6-10.3); Creatinine Clr Calc Pharmacy 56.8 ml/min; Est GFR (African American) 80.6 ml/min; Est GFR (Non-African American) 69.6 ml/min; Globulin 2.4 gm/dl (2.5-4.0); Potassium 3.6 mmol/L (3.5-5.1); Total Protein 5.3 gm/dl (6.0-8.3)
[2023-02-27] MEDS: ACETAMINOPHEN 325 MG TAB PO PRN (08:17)
[2023-02-27] MEDS: DORZOLAMIDE HCL 2% OPH SOLN 10 ML BTL OPR SCH (08:18)
[2023-02-27] MEDS: CALCIUM CARBONATE 500 MG CHEWABLE TAB PO SCH (08:19)
[2023-02-27] MEDS: BRIMONIDINE TARTRATE 0.2% 5ML OPR SCH (08:19)
[2023-02-27] MEDS: TIMOLOL MALEATE 0.5% OP SOLN 5 ML BTL OPR SCH (08:19)
[2023-02-27] MEDS: CALCITRIOL 0.25 MCG CAPSULE PO SCH (08:20)
--- NOTE | 2023-02-27 11:52 | Hospitalist Progress Note ---
Date of Service February 27, 2023 Assessment & Plan (1) Urinary retention: (2) Acute renal failure: (3) Bladder outlet obstruction: (4) BPH (benign prostatic hyperplasia): Plan: Recent admission with bladder outlet obstruction from 02/18 to 02/20. Signed out AMA without Wadsworth catheter. Presents with CHAUNCEY. S/P Wadsworth placement. Renal function back to baseline Voiding trial as outpatient Needs follow-up with urology upon discharge Continue Wadsworth catheter upon discharge (5) Non-small cell lung cancer: (6) Metastatic adenocarcinoma to bone: Plan: H/O Small cell lung carcinoma involving the right upper lobe with metastatic bony disease involving L2 in the right hip Currently on every 6-week Keytruda infusions Follows with Dr. Mccray as outpatient Follows with radiation oncology, underwent XRT on 02/24/2023 Needs follow-up with oncology upon discharge (7) Hypocalcemia: Plan: Hypocalcemia likely due to Keytruda. Last dose was January 14/2023. Corrected calcium improved to 8.7 PTH 490 on 02/18 last admission Vitamin D level is normal Appreciate nephrology input Plan to continue calcium carbonate 1500 MG 3 times daily along with calcitriol 0.25 mcg daily upon discharge Needs repeat BMP in 1 week and follow-up with nephrology in 1 to 2 weeks. (8) Tobacco use disorder: Plan: - Chronic, stable - Pt smokes cigars which have no nicotine in them - he defers nicotine patch - was counselled on cessation (9) AAA (abdominal aortic aneurysm): Plan: -Chronic, stable, does not want to pursue surgical intervention and understands risk DVT px: Teds, scds CODE STATUS: DNR/DNI Disposition Home Admission and Anticipated Discharge Date Admission Date: February 25, 2023 Subjective Patient is seen and examined at bedside States feeling well today Offers no new complaints Renal function back to baseline Discussed with patient's daughter over the phone Eager to get discharged Review of Systems Review of Systems: All systems reviewed & are unremarkable except as noted in Subjective Physical Exam Physical Exam: Physical Exam: Vitals signs as noted above General Appearance:Moderately built and nourished, no apparent distress Head: normocephalic, Atraumatic Eyes: normal inspection, EOMI Neck: supple, Trachea midline Respiratory/Chest: Decreased breath sounds, CTA, No accessory muscle use Cardiovascular: S1, S2, No murmur Abdomen/GI:Soft, Non tender, Bowel sounds present Extremities/Musculoskeletal:normal inspection,no edema Neurologic/Psych:AAOX3, grossly no focal neurological deficits Skin: normal color, warm Results & Data Results & Data Vital Signs (Past 12 Hours) Vital Signs Temp Pulse Resp BP Pulse Ox O2 Del Method 02/27/23 08:00 Room Air 02/27/23 07:43 36.8 C 74 16 134/77 94 Room Air Laboratory Results Short CBC 02/27/23 Range/Units 05:56 WBC 7.06 (4.8-10.8) K/ul Hgb 10.3 L (14.0-18.0) g/dl Hct 30.8 L (42.0-52.0) % Plt Count 165 (130-400) K/uL BMP 02/27/23 05:56 Sodium 140 Potassium 3.6 Chloride 112 H Carbon Dioxide 24 BUN 12 Creatinine 1.02 D Glucose 87 Calcium 7.1 L Liver Function 02/27/23 Range/Units 05:56 Total Bilirubin 0.4 (0.2-1.0) mg/dl AST 14 (13-39) U/L ALT 5 L (7-52) U/L Alkaline Phosphatase 178 H (34-104) U/L Albumin 2.9 L (3.4-5.0) gm/dl (2) Acute renal failure Acute renal failure type: unspecified Qualified Code(s): N17.9 - Acute kidney failure, unspecified (5) Non-small cell lung cancer Laterality: unspecified laterality Qualified Code(s): C34.90 - Malignant neoplasm of unspecified part of unspecified bronchus or lung (9) AAA (abdominal aortic aneurysm) Abdominal aorta location: unspecified Presence of rupture: without rupture Qualified Code(s): I71.40 - Abdominal aortic aneurysm, without rupture, unspecified
--- NOTE | 2023-02-27 12:25 | Discharge Summary ---
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 Patient was recently admitted from 02/18 to 02/20 for acute renal failure, urinary retention and BPH where a Wadsworth catheter was placed replaced, patient did not want Wadsworth to be continued and therefore left AMA. At that point time he was also found to have hypocalcemia with a calcium of 4.4, today his calcium is 5.5. and corrects to 6.1. Repeat imaging with CT was not done in the ER as this was just completed on 02/18 for same symptoms which include urinary retention with "dribbling" versus a steady stream like previously. Pt reports soaked 3 diapers overnight last night, and urinated about 1/2 C of urine this morning. Pt reports drinking 4-6 bottles of water per day, 2.5 cups of coffee and is eating well. Pt had radiation treatment yesterday and was unable to get it today. He was also supposed to have Keytruda infusion today but it was cancelled due to calcium levels. Pt walks at baseline by himself and gets up multiple times per day because he gets stiff otherwise. He smokes 0.5 ppd small cigars which reports have no nicotine in them, and has been using these for about 11 years. Prior to that he smoked cigarrettes up to 2 ppd. Therefore, declines a nicotine patch. Wadsworth placed in the ER with 2 L out. Admission Exam Per Admitting Provider General: awake, alert, no apparent distress, Elderly white male, smells of smoke Head: Normocephalic, atraumatic ENT: PERRL, EOMI, , eyelid droop of the right eye, no pharyngeal exudate, mucous membranes moist Chest: Clear to auscultation, on room air, no adventitious breath sounds Cardiac: Regular rate and rhythm, no murmur, no JVD, normal peripheral pulses, good capillary refill Abdominal: NABS x 4 quadrants, soft, nondistended, nontender to palpation, no rebound or guarding : Wadsworth in place draining clear yellow urine Extremities: Normal inspection, 2+pitting peripheral edema up to knees bilaterally, no erythema, calfs nontender to palpation Psych: Normal mood and affect Neuro: AAO x 3, strength intact bilaterally and rated 5/5, no motor deficits, speech is clear, no peripheral sensory deficits Principal Diagnosis Acute kidney injury Hypocalcemia Urinary retention Benign prostatic hyperplasia Discharge Data Allergies Allergy/AdvReac Type Severity Reaction Status Date / Time No Known Allergies Allergy Unverified 02/18/23 13:23 Consultations 02/25/23 12:55 ED Decision to Admit Stat 02/25/23 13:18 Consult Nephrology Routine Consult Urology Routine Procedures Performed Laboratory Results WBC 7.06 K/ul (4.8-10.8) 02/27/23 05:56 RBC 3.37 M/uL (4.70-6.10) L 02/27/23 05:56 Hgb 10.3 g/dl (14.0-18.0) L 02/27/23 05:56 Hct 30.8 % (42.0-52.0) L 02/27/23 05:56 MCV 91.4 fL (80.0-100.0) 02/27/23 05:56 MCH 30.6 pg (25.0-34.0) 02/27/23 05:56 MCHC 33.4 g/dL (32.0-36.0) 02/27/23 05:56 RDW Std Deviation 54.9 fL (36.4-46.3) H 02/27/23 05:56 RDW Coeff of Madeleine 16.5 % (11.5-14.5) H 02/27/23 05:56 Plt Count 165 K/uL (130-400) 02/27/23 05:56 MPV 9.4 fL (9.4-12.4) 02/27/23 05:56 Immature Gran % (Auto) 1.4 % 02/27/23 05:56 Neut % (Auto) 52.1 % 02/27/23 05:56 Lymph % (Auto) 32.9 % 02/27/23 05:56 Charlton % (Auto) 10.2 % 02/27/23 05:56 Eos % (Auto) 3.0 % 02/27/23 05:56 Baso % (Auto) 0.4 % 02/27/23 05:56 Neut # (Auto) 3.68 K/uL (1.40-6.50) 02/27/23 05:56 Lymph # (Auto) 2.32 K/uL (1.2-3.4) 02/27/23 05:56 Charlton # (Auto) 0.72 K/uL (0.11-0.59) H 02/27/23 05:56 Eos # (Auto) 0.21 K/uL (0-0.50) 02/27/23 05:56 Baso # (Auto) 0.03 K/uL (0-0.2) 02/27/23 05:56 Immature Gran # (Auto) 0.10 K/uL (0.01-0.20) 02/27/23 05:56 Sodium 140 mmol/L (136-145) 02/27/23 05:56 Potassium 3.6 mmol/L (3.5-5.1) 02/27/23 05:56 Chloride 112 mmol/L (98-107) H 02/27/23 05:56 Carbon Dioxide 24 mmol/L (21-32) 02/27/23 05:56 Anion Gap 4 (3-11) 02/27/23 05:56 BUN 12 mg/dl (6-23) 02/27/23 05:56 Creatinine 1.02 mg/dl (0.6-1.4) D 02/27/23 05:56 Est Cr Clr Drug Dosing 56.8 ml/min 02/27/23 05:56 Est GFR ( Amer) 80.6 ml/min 02/27/23 05:56 Est GFR (Non-Af Amer) 69.6 ml/min 02/27/23 05:56 BUN/Creatinine Ratio 11.8 (10-20) 02/27/23 05:56 Glucose 87 mg/dl (70-99(Fasting)) 02/27/23 05:56 Calcium 7.1 mg/dl (8.6-10.3) L 02/27/23 05:56 Ionized Calcium 0.89 mmol/L (1.12-1.32) L 02/26/23 06:36 Phosphorus 3.1 mg/dl (2.5-4.9) D 02/26/23 06:36 Magnesium 2.3 mg/dl (1.7-2.4) 02/26/23 06:36 Total Bilirubin 0.4 mg/dl (0.2-1.0) 02/27/23 05:56 AST 14 U/L (13-39) 02/27/23 05:56 ALT 5 U/L (7-52) L 02/27/23 05:56 Alkaline Phosphatase 178 U/L (34-104) H 02/27/23 05:56 Total Creatine Kinase 138 U/L (30-223) 02/25/23 11:34 Troponin I High Sens 10.0 pg/ml (0-20) 02/25/23 11:34 Total Protein 5.3 gm/dl (6.0-8.3) L 02/27/23 05:56 Albumin 2.9 gm/dl (3.4-5.0) L 02/27/23 05:56 Globulin 2.4 gm/dl (2.5-4.0) L 02/27/23 05:56 Albumin/Globulin Ratio 1.2 (0.9-2) 02/27/23 05:56 Urine Color Yellow 02/25/23 11:54 Urine Appearance Clear (Clear) 02/25/23 11:54 Urine pH 7.0 (4.5-7.5) 02/25/23 11:54 Ur Specific [place] 1.008 (1.000-1.030) 02/25/23 11:54 Urine Protein Trace (Negative) H 02/25/23 11:54 Urine Glucose (UA) Negative (Negative) 02/25/23 11:54 Urine Ketones Negative (Negative) 02/25/23 11:54 Urine Blood 3+ (Negative) H 02/25/23 11:54 Urine Nitrite Negative (Negative) 02/25/23 11:54 Urine Bilirubin Negative (Negative) 02/25/23 11:54 Urine Urobilinogen Negative (Negative) 02/25/23 11:54 Ur Leukocyte Esterase Trace (Negative) H 02/25/23 11:54 Urine WBC (Auto) 1-5 /hpf (0-5) 02/25/23 11:54 Urine RBC (Auto) >30 /hpf (0-4) H 02/25/23 11:54 U Hyaline Cast (Auto) 1-5 /lpf (0-5) 02/25/23 11:54 U Epithel Cells (Auto) 5-10 /lpf (0-5) H 02/25/23 11:54 Urine Bacteria (Auto) Negative (Negative) 02/25/23 11:54 Hospital Course (1) Urinary retention: (2) Acute renal failure: (3) Bladder outlet obstruction: (4) BPH (benign prostatic hyperplasia): Recent admission with bladder outlet obstruction from 02/18 to 02/20. Signed out AMA without Wadsworth catheter. Presents with [facility]. S/P Wadsworth placement. 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 Mccray as outpatient Follows with radiation oncology, underwent XRT on 02/24/2023 Needs follow-up with oncology upon discharge (7) Hypocalcemia: Hypocalcemia likely due to Keytruda. Last dose was January 14/2023. Corrected calcium improved to 8.7 PTH 490 on 02/18 last admission Vitamin D level is normal Appreciate nephrology input Plan to continue calcium carbonate 1500 MG 3 times daily along with calcitriol 0.25 mcg daily upon discharge Needs repeat BMP in 1 week and follow-up with nephrology in 1 to 2 weeks. (8) Tobacco use disorder: - Chronic, stable - Pt smokes cigars which have no nicotine in them - he defers nicotine patch - was counselled on cessation (9) AAA (abdominal aortic aneurysm): -Chronic, stable, does not want to pursue surgical intervention and understands risk DVT px: Teds, scds CODE STATUS: DNR/DNI Disposition Home Total Time Total Time Spent Total Time Spent (In Minutes): 45 minutes Discharge Plan Discharge Items Patient Disposition: Home - Self-Care Reason For Visit: ARF, URINARY RETENTION, HYPOCALCEMIA Discharge Diagnosis: Acute kidney injury Hypocalcemia Urinary retention Benign prostatic hyperplasia Condition on Discharge: Fair Activity: Per Instructions section Exercise/Sports: Wait until after follow-up appointment Non-emergency contact: Primary Care Provider, Crabbing Machine Operator, Oncologist and Urologist Call non-emergency contact if: you have any medication questions, your symptoms worsen and you have a fever Follow-up/Referrals: Trey Mancuso MD [Primary Care Provider] - Diet: Regular Addtl Attending Provider Instructions: Follow-up with your primary care physician Dr. Mancuso in 1 week Follow-up with your cut off machine helper Dr. Hylton in 1-2 weeks Follow-up with your urologist Dr. Campoverde in 1-2 weeks for voiding trial as outpatient Follow-up with your oncologist Dr. Mccray as advised. --- Get blood test (basic metabolic panel) on Tuesday03/01/23 and follow up with your primary care physician/cut off machine helper for further recommendations on medications. -- Start taking calcitriol 0.25 mcg daily along with calcium carbonate 1500 mg 3 times a day as advised by your cut off machine helper. Further recommendations based on repeat blood test next week. --- Continue using Wadsworth catheter until follow-up with the urologist. Seek immediate medical attention if your symptoms reoccur or worsen Please take all medications as instructed on discharge list below. Please call if you have any questions or problems. You can reach a [facility] hospitalist on duty at [facility] 24 hours a day by calling [phone] Pending Studies at Discharge: No Stand-Alone Forms: My [facility] [employer], Smoking Cessation Medications and DC Order Prescriptions: New calcitriol 0.25 mcg Capsule 0.25 mcg PO DAILY Qty: 15 0RF Continued brimonidine-timolol 0.2-0.5 % drops 1 drp OPR BID Patient Comments: right eye latanoprost [Xalatan] 0.005 % drops 1 drp OPR QPM Patient Comments: right eye tamsulosin 0.4 mg capsule 0.4 mg PO HS Phospho-Maxine 250 Neutral 250 mg tablet 1 tab PO BID dorzolamide (PF) 2 % drops 1 drp OPR TID levothyroxine 75 mcg capsule 75 mcg PO DAILY gabapentin 100 mg capsule 100 mg PO HS Rhopressa 0.02 % drops 1 drp ophthalmic (eye) HS calcium carbonate [Tums] 200 mg calcium (500 mg) Tablet,Chewable 1,500 mg PO TID 14 Days Qty: 315 0RF Discharge Orders: Discharge Order (Routine); Ordered 02/27/23 Ordered By: Ángel Thurman Admission Data Admit Date/Time: 02/25/23 13:18 Attending Provider: Ángel Thurman Admit Provider: Zakia Carbajal Primary Care Provider: Trey Mancuso Other Providers: Margarito Paulino ; Ron Campoverde ; Zakia Carbajal
[2023-02-28] MEDS ORDERED: CALCITRIOL 0.25 MCG CAPSULE PO SCH (09:00)
== END 2023-02-27 13:39 | disposition home or self-care (01) | DRG 683 ==
LOC: ED 11:06 → 3N 13:18 → SUATTDRO 13:18 → 3N 16:03